=== PATIENT | male | born 1945 | race Hispanic/Latino ===

== ENCOUNTER → 2018-09-24 | Outpatient (CLI) | payer OTHER ==
[~2018-09-24] MED LIST: ASPI-1181 PO; CLOP75TA14 PO; FINA5TAB41 PO; LEVO25TA54 PO; METO-408 PO; NITR4.9S5 TL; SIMV40TA5 PO
== END | disposition home or self-care (01) ==
LOC: SHCH 14:55
PROVIDERS: ATTEND Internal Medicine Cardiovascular Disease
DX: I11.9 Hypertensive heart disease without heart failure (principal); I70.0 Atherosclerosis of aorta; I35.0 Nonrheumatic aortic (valve) stenosis; Z95.1 Presence of aortocoronary bypass graft
CPT/HCPCS: 93306

== ENCOUNTER 2019-03-19 10:41 | Emergency (ER) | payer OTHER ==
[2019-03-19 11:22] LABS: BASOPHILS % (AUTO) 0.3 % (0.0-5.0); EOSINOPHILS % (AUTO) 0.2 % (0.0-8.0); HEMATOCRIT 44.2 % (42-54); LYMPHOCYTES % (AUTO) 11.9 % (21.0-51.0); MEAN CORPUSCULAR HEMOGLOBIN 30.8 pg (27.0-33.0); MEAN CORPUSCULAR HGB CONC 34.6 g/dL (32.0-36.0); MEAN CORPUSCULAR VOLUME 89.2 fL (79-99); MONOCYTES % (AUTO) 9.7 % (3.0-13.0); NEUTROPHILS % (AUTO) 77.9 % (40.0-77.0); NUCLEATED RED BLOOD CELLS 0.1 % (0.0-0.19); PLATELET COUNT (AUTO) 174 K/uL (130-400); RED BLOOD CELL COUNT(AUTO) 4.96 MIL/uL (4.50-6.20); RED CELL DISTRIBUTION WIDTH 14.1 % (11.0-15.5); WHITE BLOOD COUNT (AUTO) 7.7 K/uL (4.8-10.8)
[2019-03-19 11:27] LABS: APPEARANCE,URINE Clear (CLEAR); BILIRUBIN,URINE Negative (NEGATIVE); COLOR,URINE Yellow (YELLOW); GLUCOSE, URINE (UA) Negative (NEGATIVE); KETONES,URINE Negative (NEGATIVE); LEUKOCYTE ESTERASE ,URINE Negative (NEGATIVE); NITRATE,URINE Negative (NEGATIVE); OCCULT BLOOD,URINE Negative (NEGATIVE); PROTEIN,URINE Negative (NEGATIVE)
[2019-03-19 11:31] LABS: CREATININE 0.9 mg/dL (0.5-1.5); POTASSIUM 3.8 mmol/L (3.5-5.1)
[2019-03-19 11:37] LABS: ALBUMIN 3.9 g/dL (3.5-5.0); BILIRUBIN,DIRECT 0.1 mg/dL (0.0-0.3); BILIRUBIN,TOTAL 0.4 mg/dL (0.2-1.0); TOTAL PROTEIN, SERUM 7.1 g/dL (6.0-8.3)
== END 2019-03-19 13:17 | disposition home or self-care (01) ==
LOC: EDH 10:41
DX: M43.06 Spondylolysis, lumbar region (principal); M54.16 Radiculopathy, lumbar region; M79.605 Pain in left leg; I10 Essential (primary) hypertension; M19.90 Unspecified osteoarthritis, unspecified site; Z98.890 Other specified postprocedural states
CPT/HCPCS: 36415; 72131; 80048; 80076; 81003; 82550; 84484; 85025; 93005; 93971; 99285; J3490

== ENCOUNTER → 2019-04-16 | Outpatient (CLI) | payer OTHER | END | disposition home or self-care (01) | LOC: RAH 08:16 | PROVIDERS: ATTEND Internal Medicine Cardiovascular Disease | DX: I06.9 Rheumatic aortic valve disease, unspecified (principal); I11.9 Hypertensive heart disease without heart failure | CPT/HCPCS: 93306 ==

== ENCOUNTER 2019-04-29 06:23 | Day surgery (SDC) | payer OTHER ==
[2019-04-26 16:19] VITALS: BP 145/80
[2019-04-26 16:19] LABS: BASOPHILS % (AUTO) 0.6 % (0.0-5.0); EOSINOPHILS % (AUTO) 2.3 % (0.0-8.0); LYMPHOCYTES % (AUTO) 18.8 % (21.0-51.0); MEAN CORPUSCULAR HEMOGLOBIN 30.4 pg (27.0-33.0); MEAN CORPUSCULAR HGB CONC 33.1 g/dL (32.0-36.0); MEAN CORPUSCULAR VOLUME 91.8 fL (79-99); MONOCYTES % (AUTO) 10.3 % (3.0-13.0); NUCLEATED RED BLOOD CELLS 0.1 % (0.0-0.19); PLATELET COUNT (AUTO) 170 K/uL (130-400); RED BLOOD CELL COUNT(AUTO) 4.69 MIL/uL (4.50-6.20); RED CELL DISTRIBUTION WIDTH 14.3 % (11.0-15.5); WHITE BLOOD COUNT (AUTO) 6.3 K/uL (4.8-10.8)
[2019-04-26 16:19] LABS: APPEARANCE,URINE Clear (CLEAR); BILIRUBIN,URINE Negative (NEGATIVE); COLOR,URINE Yellow (YELLOW); GLUCOSE, URINE (UA) Negative (NEGATIVE); KETONES,URINE Trace mg/dL (NEGATIVE); LEUKOCYTE ESTERASE ,URINE Trace (NEGATIVE); NITRATE,URINE Negative (NEGATIVE); OCCULT BLOOD,URINE Trace (NEGATIVE); PH,URINE 6.5 (5.0-8.0); PROTEIN,URINE Trace mg/dL (NEGATIVE)
[2019-04-26 16:23] LABS: BACTERIA,URINE Rare /HPF (None Seen); RBC,URINE 0-1 /HPF (0-1); SQUAMOUS EPITHELIAL CELL,UR Rare /HPF (0-2)
[2019-04-26 16:27] LABS: INR 0.96 (0.85-1.15); PROTHROMBIN TIME 10.1 SEC (9.6-11.6)
[2019-04-26 16:31] LABS: ALBUMIN 3.7 g/dL (3.5-5.0); BILIRUBIN,DIRECT 0.1 mg/dL (0.0-0.3); BILIRUBIN,TOTAL 0.3 mg/dL (0.2-1.0); CREATININE 1.1 mg/dL (0.5-1.5); POTASSIUM 4.3 mmol/L (3.5-5.1); TOTAL PROTEIN, SERUM 6.9 g/dL (6.0-8.3)
[~2019-04-29] VITALS: Ht 168.9 cm; Wt 83.0 kg
[2019-04-29] VITALS (17 sets, daily range): BP systolic 113–154; BP diastolic 57–83
[~2019-04-29 06:23] MED LIST changes: +ATOR20TA65 PO; +BACL10TA PO; +GABA-533 PO; +LISI-613 PO; +OMEGA PO; -SIMV40TA5 PO; +TRAM-355 PO; +[UNRECOGNIZED DRUG - OTHER] PO; +[UNRECOGNIZED DRUG - OTHER] PO
[2019-04-29] MEDS ORDERED: SUCCINYLCHOLINE 200MG/10ML SYR ONE (07:30)
[2019-04-29] MEDS ORDERED: LIDOCAINE PF 2% 5ML ABBOJECT ONE (07:30)
[2019-04-29] MEDS ORDERED: DEXAMETHASONE SOD PHOSPHATE 10MG/ML 1ML VIAL ONE (07:30)
[2019-04-29] MEDS ORDERED: MIDAZOLAM HCL 1 MG/ML 2ML VIAL ONE (07:31)
[2019-04-29] MEDS ORDERED: NEOSTIGMINE 5MG/5ML SYR IV ONE (07:31)
[2019-04-29] MEDS ORDERED: GLYCOPYRROLATE 1 MG/5 ML SYRINGE ONE (07:31)
[2019-04-29] MEDS ORDERED: ONDANSETRON HCL 4 MG/2 ML VIAL ONE (07:31)
[2019-04-29] MEDS ORDERED: PROPOFOL 10 MG/ML 20ML VIAL IV ONE (07:31)
[2019-04-29] MEDS ORDERED: FENTANYL CITRATE PF 50 MCG/1 ML 2ML VIAL ONE (07:31)
[2019-04-29] MEDS ORDERED: ROCURONIUM 10MG/1ML SYR 10 MG/ML ML ONE (07:31)
[2019-04-29] MEDS ORDERED: LACTATED RINGERS 1000ML 1,000 ML IV SCH (08:00)
[2019-04-29] MEDS ORDERED: HEPARIN SODIUM 1000UNIT/ML 10ML VIAL ONE (08:25)
[2019-04-29] MEDS ORDERED: PHENYLEPHRINE HCL 10 MG/ML 1ML VIAL IV ONE (08:47)
== END 2019-04-29 12:18 | disposition home or self-care (01) ==
LOC: DAH 06:23
PROVIDERS: ATTEND Surgery
DX: K80.10 Calculus of gallbladder with chronic cholecystitis without obstruction (principal); I10 Essential (primary) hypertension; E78.5 Hyperlipidemia, unspecified; I25.10 Atherosclerotic heart disease of native coronary artery without angina pectoris; E03.9 Hypothyroidism, unspecified; Z95.5 Presence of coronary angioplasty implant and graft; Z98.890 Other specified postprocedural states; Z79.82 Long term (current) use of aspirin; Z79.899 Other long term (current) drug therapy; Z95.1 Presence of aortocoronary bypass graft
CPT/HCPCS: 36415; 47562; 80048; 80076; 81001; 85025; 85610; 88304; 93005; A4450; A4600; A4930; C1769 ×4; J0330; J1100; J1644; J2001; J2250; J2370; J2405; J2704; J2710; J3010; J3490; J7030; J7120 ×2

== ENCOUNTER → 2019-05-25 | Outpatient (CLI) | payer OTHER | END | disposition home or self-care (01) | LOC: RAH 10:36 | PROVIDERS: ATTEND Internal Medicine | DX: I73.9 Peripheral vascular disease, unspecified (principal) | CPT/HCPCS: 93925 ==

== ENCOUNTER → 2019-10-01 | Outpatient (CLI) | payer OTHER | END | disposition home or self-care (01) | LOC: RAH 09:32 | PROVIDERS: ATTEND Internal Medicine | DX: K76.0 Fatty (change of) liver, not elsewhere classified (principal); I71.4 Abdominal aortic aneurysm, without rupture; R16.0 Hepatomegaly, not elsewhere classified; N28.1 Cyst of kidney, acquired | CPT/HCPCS: 76700 ==

== ENCOUNTER → 2020-03-07 | Outpatient (CLI) | payer OTHER | END | disposition home or self-care (01) | LOC: RAH 08:53 | PROVIDERS: ATTEND Internal Medicine | DX: N28.1 Cyst of kidney, acquired (principal); K76.0 Fatty (change of) liver, not elsewhere classified; I71.4 Abdominal aortic aneurysm, without rupture ==

== ENCOUNTER → 2020-04-14 | Outpatient (CLI) | payer OTHER ==
[~2020-04-14] MED LIST changes: -ASPI-1181 PO; +ASPI-1443 PO; +DULO30CA52 PO
== END | disposition home or self-care (01) ==
LOC: SHCH 07:57
PROVIDERS: ATTEND Internal Medicine Cardiovascular Disease
DX: I06.0 Rheumatic aortic stenosis (principal); I10 Essential (primary) hypertension
CPT/HCPCS: 93306; 93356

== ENCOUNTER → 2020-04-19 | Outpatient (CLI) | payer OTHER | END | disposition home or self-care (01) | LOC: SHCH 07:47 | PROVIDERS: ATTEND Internal Medicine Cardiovascular Disease | DX: I71.4 Abdominal aortic aneurysm, without rupture (principal); I25.10 Atherosclerotic heart disease of native coronary artery without angina pectoris; R09.89 Other specified symptoms and signs involving the circulatory and respiratory systems | CPT/HCPCS: 93880; 93978 ==

== ENCOUNTER 2020-04-27 17:12 | Inpatient (IN) | payer OTHER ==
[~2020-04-27] VITALS: Ht 162.6 cm; Wt 76.1 kg
[~2020-04-27 17:12] MED LIST changes: -DULO30CA52 PO
[2020-04-27] MEDS ORDERED: ASPIRIN 325MG EC TAB 325 MG TABLET.DR PO ONE ×2 (17:19→17:24)
[2020-04-27 17:58] LABS: BASOPHILS % (AUTO) 1.5 % (0.0-5.0); HEMATOCRIT 24.8 % (42-54); LYMPHOCYTES % (AUTO) 30.7 % (21.0-51.0); MEAN CORPUSCULAR HEMOGLOBIN 27.3 pg (27.0-33.0); MEAN CORPUSCULAR HGB CONC 30.2 g/dL (32.0-36.0); MEAN CORPUSCULAR VOLUME 90.2 fL (79-99); MONOCYTES % (AUTO) 29.6 % (3.0-13.0); NEUTROPHILS % (AUTO) 38.2 % (40.0-77.0); NUCLEATED RED BLOOD CELLS 16.8 % (0.0-0.19); PLATELET COUNT (AUTO) 77 K/uL (130-400); RED BLOOD CELL COUNT(AUTO) 2.75 MIL/uL (4.50-6.20); RED CELL DISTRIBUTION WIDTH 19.9 % (11.0-15.5); WHITE BLOOD COUNT (AUTO) 2.7 K/uL (4.8-10.8)
[2020-04-27] MEDS ORDERED: HEPARIN 25000 UNITS/250 ML D5W 250 ML IV ONE (17:59)
[2020-04-27] MEDS ORDERED: CLOPIDOGREL BISULFATE 300 MG TAB ONE (18:02)
[2020-04-27] MEDS ORDERED: METOPROLOL TARTRATE 1 MG/ML 5ML VIAL IV ONE (18:03)
[2020-04-27] MEDS ORDERED: NITROGLYCERIN 1GM/1 INCH PACKET TD ONE (18:03)
[2020-04-27] MEDS ORDERED: HEPARIN SODIUM 5000UNIT/ML 1ML VIAL ONE (18:03)
[2020-04-27] MEDS ORDERED: HEPARIN SODIUM 1000UNIT/ML 10ML VIAL IV ONE (18:20)
[2020-04-27] MEDS ORDERED: PHENYLEPHRINE HCL 10 MG/ML 1ML VIAL IV ONE (18:20)
[2020-04-27] MEDS ORDERED: MANNITOL 25% 50ML VIAL IV ONE (18:20)
[2020-04-27] MEDS ORDERED: CALCIUM CHLORIDE 100 MG/ML 10 ML SYG IVP ONE (18:20)
[2020-04-27] MEDS ORDERED: ALBUMIN (HUMAN) 25% 50 ML IV ONE (18:20)
[2020-04-27] MEDS ORDERED: MAGNESIUM SULFATE 1 GM/2 ML VIAL IM ONE (18:20)
[2020-04-27] MEDS ORDERED: SODIUM BICARB 8.4% 50ML SYRINGE IVP ONE (18:20)
[2020-04-27] MEDS ORDERED: AMINOCAPROIC ACID 250 MG/ML 20 ML VIAL IV ONE (18:20)
[2020-04-27 18:23] LABS: POTASSIUM 4.1 mmol/L (3.5-5.1)
[2020-04-27 18:30] LABS: BAND NEUTROPHILS % (MANUAL) 5 % (0-2); LYMPHOCYTES % (MANUAL) 38 % (22-44); SEGMENTED NEUTROPHILS % 35 % (40-70)
[2020-04-27 18:31] LABS: METAMYELOCYTES % 2 % (0-0)
[2020-04-27 18:32] LABS: B-TYPE NATRIURETIC PEPTIDE 790 pg/mL (0-100)
[2020-04-27 18:35] LABS: INR 1.02 (0.85-1.15)
[2020-04-27 18:38] LABS: ALBUMIN 3.2 g/dL (3.5-5.0); BILIRUBIN,DIRECT 0.3 mg/dL (0.0-0.3); TOTAL PROTEIN, SERUM 7.3 g/dL (6.0-8.3)
[2020-04-27 18:43] LABS: OTHER CELLS,MANUAL % 2 (0-0)
[2020-04-27 18:43] LABS: BASOPHILS % (AUTO) 1.3 % (0.0-5.0); HEMATOCRIT 24.1 % (42-54); LYMPHOCYTES % (AUTO) 28.6 % (21.0-51.0); MEAN CORPUSCULAR HEMOGLOBIN 27.1 pg (27.0-33.0); MEAN CORPUSCULAR HGB CONC 30.3 g/dL (32.0-36.0); MEAN CORPUSCULAR VOLUME 89.6 fL (79-99); MONOCYTES % (AUTO) 27.7 % (3.0-13.0); NEUTROPHILS % (AUTO) 31.7 % (40.0-77.0); PLATELET COUNT (AUTO) 80 K/uL (130-400); RED BLOOD CELL COUNT(AUTO) 2.69 MIL/uL (4.50-6.20); RED CELL DISTRIBUTION WIDTH 19.9 % (11.0-15.5); WHITE BLOOD COUNT (AUTO) 2.2 K/uL (4.8-10.8)
[2020-04-27 18:44] LABS: REACTIVE LYMPHOCYTES 2 % (0-0)
[2020-04-27 21:00] VITALS: BP 114/73
[2020-04-27 22:00] VITALS: BP 110/52
[2020-04-27 22:23] VITALS: BP 98/63
[2020-04-27 23:00] VITALS: BP 95/61
[2020-04-27 23:23] VITALS: BP 108/72
[2020-04-27 23:25] LABS: HEMATOCRIT 22.8 % (42-54)
[2020-04-28] VITALS (27 sets, daily range): BP systolic 87–117; BP diastolic 48–81
[2020-04-28 00:17] LABS: TROPONIN I 3.53 ng/mL (0.00-0.06)
[2020-04-28] MEDS ORDERED: DULO30CA52 PO (00:56)
[2020-04-28 03:46] LABS: HEMATOCRIT 22.6 % (42-54); MEAN CORPUSCULAR HEMOGLOBIN 27.5 pg (27.0-33.0); MEAN CORPUSCULAR HGB CONC 31.4 g/dL (32.0-36.0); MEAN CORPUSCULAR VOLUME 87.6 fL (79-99); PLATELET COUNT (AUTO) 77 K/uL (130-400); RED BLOOD CELL COUNT(AUTO) 2.58 MIL/uL (4.50-6.20); RED CELL DISTRIBUTION WIDTH 19.8 % (11.0-15.5); WHITE BLOOD COUNT (AUTO) 2.6 K/uL (4.8-10.8)
[2020-04-28 04:16] LABS: BAND NEUTROPHILS % (MANUAL) 4 % (0-2); LYMPHOCYTES % (MANUAL) 44 % (22-44); MONOCYTES % (MANUAL) 11 % (2-9); SEGMENTED NEUTROPHILS % 41 % (40-70)
[2020-04-28 04:18] LABS: MAN.DIFF COMMENT-IMPRESSION MANUAL DIFFERENTIAL
[2020-04-28 04:21] LABS: PLATELET MORPHOLOGY COMMENT MARKED DECREASE
[2020-04-28 05:15] LABS: INR 1.08 (0.85-1.15); PARTIAL THROMBOPLASTIN TIME 53.5 SEC (26.3-35.5); PROTHROMBIN TIME 11.6 SEC (9.6-11.6)
[2020-04-28] MEDS ORDERED: ONDANSETRON HCL 4 MG/2 ML VIAL IVP PRN (07:00)
--- NOTE | 2020-04-28 07:00 | NUR ---
ACCEPTED CARE ACCEPTED CARE REPORT RECEIVED USING SBAR FORMAT.
[2020-04-28 07:50] LABS: ALBUMIN 3.1 g/dL (3.5-5.0); BILIRUBIN,TOTAL 1.2 mg/dL (0.2-1.0); CREATININE 1.1 mg/dL (0.5-1.5); CRP QUANTITATIVE 117.7 mg/L (0.00-9.0); MAGNESIUM 1.9 mg/dL (1.80-2.40); PHOSPHORUS 4.3 mg/dL (2.5-4.9); POTASSIUM 4.2 mmol/L (3.5-5.1)
[2020-04-28] MEDS: FUROSEMIDE 10 MG/ML 4ML VIAL IV SCH ×2 (08:36→18:00)
[2020-04-28] MEDS: PANTOPRAZOLE SODIUM 40 MG TABLET.DR PO SCH (08:36)
[2020-04-28] MEDS: METOPROLOL SUCCINATE 50 MG TAB.SR.24H PO SCH (08:36)
[2020-04-28] MEDS: LEVOTHYROXINE 25 MCG TABLET PO SCH (08:36)
[2020-04-28] MEDS: ASPIRIN 81 MG EC TAB PO SCH (08:37)
[2020-04-28] MEDS: DEXAMETHASONE SOD PHOSPHATE 4 MG/ML 1ML VIAL IVP SCH (08:37)
[2020-04-28] MEDS: DULOXETINE HCL 30 MG CAP PO SCH (08:37)
[2020-04-28] MEDS ORDERED: LISINOPRIL 20 MG TABLET PO SCH (09:00)
[2020-04-28] MEDS: HEPARIN 25000 UNITS/250 ML D5W 250 ML IV PRN (09:21)
[2020-04-28 09:59] LABS: INR 1.07 (0.85-1.15); PARTIAL THROMBOPLASTIN TIME 47.3 SEC (26.3-35.5); PROTHROMBIN TIME 11.5 SEC (9.6-11.6)
[2020-04-28] MEDS ORDERED: PROPOFOL 1000 MG/100 ML 100 ML IV ONE (10:28)
--- NOTE | 2020-04-28 10:37 | NUR ---
CHART CHECK COMPLETED. Pt IS A 74 Y.O. MALE ADMITTED SECONDARY TO NON STEMI. Pt HAS A PAST MEDICAL HISTORY SIGNIFICANT FOR CAD, CABG, AORTIC STENOSIS, HTN, HLD, PVD, CHRONIC LOWER BACK PAIN, CHOLECYSTECTOMY. Pt CURRENTLY ON REGULAR TEXTURE,THIN LIQUID DIET (HEART HEALTHY). PLEASE REQUEST FORMAL SKILLED SPEECH/SWALLOW EVALUATION IF Pt PRESENTS WITH +S/S OF ASPIRATION SUCH COUGH RESPONSE, THROAT CLEAR, OR WET VOCAL QUALITY DURING P.O. Addendum: 04/28/20 at 1038 by ARIELLE NAGY [facility] Amended: Links added.
--- NOTE | 2020-04-28 10:53 | NUR ---
DC PLAN CALLED DAUGHTER MCKENNA BROWN PERSON TO NOTIFY ON FACE SHEET. PATIENT LIVES ALONE. BUT FAMILY TAKES CARE OF HIM. PATIENT HAS A CANE, NO SERVICES. PLAN IS TO RETURN HOME. WILL LIKELY STAY WITH A FAMILY MEMBER. ANSWERED DAUGHTERS QUESTIONS/CONCERNS. Addendum: 04/28/20 at 1057 by UBALDO MEYER RN CM Amended: Links added.
[2020-04-28] MEDS: FINASTERIDE 5 MG TABLET PO SCH (12:49)
--- NOTE | 2020-04-28 13:15 | NUR ---
TRANSFER OF CARE REPORT GIVEN USING SBAR FORMAT. PATIENT TRANSFERRED TO ROOM 204 VIA WHEELCHAIR BY CHARGE NURSE. TOLERATED WITHOUT INCIDENCE
[2020-04-28] MEDS ORDERED: IOHEXOL 350 MG/ML 100ML INFUS..BTL IV ONE (16:37)
[2020-04-28] MEDS: ATORVASTATIN CALCIUM 20 MG TABLET PO SCH (20:07)
--- NOTE | 2020-04-28 22:26 | NUR ---
COVID PCR PT REFUSED COVID PCR SWAB, PT WAS EXPLAINED TO IN WOLOF THE NEED FOR SECOND SWAB AND STILL DECLINED.
[2020-04-29] MEDS: HEPARIN 25000 UNITS/250 ML D5W 250 ML IV PRN ×3 (01:55→21:50)
[2020-04-29 03:37] LABS: ABG BASE EXCESS -0.8 mmol/L (-2.0-3.0); ABG HCO3 22.4 mmol/L (21.0-28.0); ABG OXYGEN SATURATION 98.6 % (95.0-99.0); ABG PCO2 34 mmHg (35-48)
[2020-04-29 04:24] LABS: HEMATOCRIT 22.7 % (42-54); MEAN CORPUSCULAR HEMOGLOBIN 27.7 pg (27.0-33.0); MEAN CORPUSCULAR HGB CONC 31.3 g/dL (32.0-36.0); MEAN CORPUSCULAR VOLUME 88.7 fL (79-99); NUCLEATED RED BLOOD CELLS 18.6 % (0.0-0.19); PLATELET COUNT (AUTO) 72 K/uL (130-400); RED BLOOD CELL COUNT(AUTO) 2.56 MIL/uL (4.50-6.20); RED CELL DISTRIBUTION WIDTH 19.8 % (11.0-15.5); WHITE BLOOD COUNT (AUTO) 2.6 K/uL (4.8-10.8)
[2020-04-29 04:42] LABS: B-TYPE NATRIURETIC PEPTIDE 788 pg/mL (0-100)
[2020-04-29 05:35] VITALS: BP 95/70
[2020-04-29] MEDS: FUROSEMIDE 10 MG/ML 4ML VIAL IV SCH (05:53)
[2020-04-29 08:00] VITALS: BP 80/63
[2020-04-29] MEDS: METOPROLOL SUCCINATE 50 MG TAB.SR.24H PO SCH ×2 (08:00→08:56)
[2020-04-29] MEDS: ASPIRIN 81 MG EC TAB PO SCH (08:01)
[2020-04-29] MEDS: LEVOTHYROXINE 25 MCG TABLET PO SCH (08:01)
[2020-04-29] MEDS: PANTOPRAZOLE SODIUM 40 MG TABLET.DR PO SCH (08:01)
[2020-04-29] MEDS: DEXAMETHASONE SOD PHOSPHATE 4 MG/ML 1ML VIAL IVP SCH (08:01)
[2020-04-29] MEDS: DULOXETINE HCL 30 MG CAP PO SCH (08:01)
[2020-04-29 11:30] VITALS: BP 107/76
[2020-04-29] MEDS: FINASTERIDE 5 MG TABLET PO SCH (12:05)
[2020-04-29 15:30] VITALS: BP 106/69
[2020-04-29] MEDS: FUROSEMIDE 10 MG/ML 2ML VIAL IV SCH (18:15)
--- NOTE | 2020-04-29 19:23 | NUR ---
PTT NOTED NO RECENT PTT FOR PATIENT, LAB ORDER PLACED FOR NOW. Addendum: 04/29/20 at 2210 by VITALIY PONCE RN RN PTT RESULTED 44.2 ADJUSTED PER PROTOCOL NEXT PTT DUE @ 0400.
[2020-04-29 20:08] VITALS: BP 97/64
[2020-04-29] MEDS: ATORVASTATIN CALCIUM 20 MG TABLET PO SCH (20:21)
[2020-04-29 23:25] VITALS: BP 97/70
[2020-04-30] VITALS (15 sets, daily range): BP systolic 86–116; BP diastolic 53–78
[2020-04-30] MEDS: FUROSEMIDE 10 MG/ML 2ML VIAL IV SCH ×2 (05:28→18:03)
[2020-04-30] MEDS: LEVOTHYROXINE 25 MCG TABLET PO SCH (05:58)
[2020-04-30 06:04] LABS: BASOPHILS % (AUTO) 1.3 % (0.0-5.0); HEMATOCRIT 22.8 % (42-54); LYMPHOCYTES % (AUTO) 25.6 % (21.0-51.0); MEAN CORPUSCULAR HEMOGLOBIN 27.3 pg (27.0-33.0); MEAN CORPUSCULAR HGB CONC 30.7 g/dL (32.0-36.0); MEAN CORPUSCULAR VOLUME 89.1 fL (79-99); MONOCYTES % (AUTO) 27.3 % (3.0-13.0); NUCLEATED RED BLOOD CELLS 21.5 % (0.0-0.19); PLATELET COUNT (AUTO) 68 K/uL (130-400); RED BLOOD CELL COUNT(AUTO) 2.56 MIL/uL (4.50-6.20); RED CELL DISTRIBUTION WIDTH 19.7 % (11.0-15.5)
[2020-04-30 06:38] LABS: ALBUMIN 2.9 g/dL (3.5-5.0); BILIRUBIN,TOTAL 0.8 mg/dL (0.2-1.0); PHOSPHORUS 5.1 mg/dL (2.5-4.9); POTASSIUM 3.8 mmol/L (3.5-5.1); TOTAL PROTEIN, SERUM 6.8 g/dL (6.0-8.3)
[2020-04-30] MEDS: DULOXETINE HCL 30 MG CAP PO SCH (08:00)
[2020-04-30] MEDS: ASPIRIN 81 MG EC TAB PO SCH (08:00)
[2020-04-30] MEDS: PANTOPRAZOLE SODIUM 40 MG TABLET.DR PO SCH (08:00)
[2020-04-30] MEDS: DEXAMETHASONE SOD PHOSPHATE 4 MG/ML 1ML VIAL IVP SCH (08:01)
[2020-04-30] MEDS: METOPROLOL SUCCINATE 50 MG TAB.SR.24H PO SCH (09:00)
[2020-04-30] MEDS: HEPARIN 25000 UNITS/250 ML D5W 250 ML IV PRN (10:30)
[2020-04-30] MEDS: FINASTERIDE 5 MG TABLET PO SCH (11:22)
--- NOTE | 2020-04-30 13:30 | NUR ---
MD NOTIFICATION CALL RECEIVED FORM Renita GARDUNO. UPDATED ON PT'S STATUS. PLAN OF CARE REVIEWED. NO NEW ORDERS RECEIVED @ THIS TIME.
--- NOTE | 2020-04-30 15:40 | NUR ---
STATUS/BLOOD TRANSFUSION PT LAYING IN BED, GETTING READY TO BEGIN BLOOD TRANSFUSION. PT C/O CHEST PAIN RADIATING TO RT ARM & JAW, 03/31, & INTERMITTENT. PT STATES HAVING CHEST PAIN SINCE EARLIER TODAY BUT HADN'T NOTIFIED STAFF SINCE PAIN WOULD SUBSIDE. Renita GARDUNO NOTIFIED OF PT'S STATUS. STAT EKG ORDERED & DR ALEGRE TO BE NOTIFIED. BLOOD TRANSFUSION STARTED. NO ADVERSE REACTION TO BLOOD TRANSFUSION. V/S PER V/S SPREADSHEET. DR ALEGRE NOTIFIED OF EKG & PT'S CURRENT STATUS. DR ALEGRE TO COME SEE PT.
--- NOTE | 2020-04-30 17:08 | NUR ---
MD VISIT DR ALEGRE IN TO SEE PT. PT'S EKGS & V/S REVIEWED BY MD. ORDER FOR METOPROLOL 9MG RECEIVED & ENTERED. TO REEVALUATE PT.
[2020-04-30] MEDS ORDERED: METOPROLOL TARTRATE 1 MG/ML 5ML VIAL IV ONE ×2 (17:14→17:16)
[2020-04-30] MEDS ORDERED: METOPROLOL TARTRATE 1 MG/ML 5ML VIAL IV SCH ×3 (17:15→18:15)
[2020-04-30] MEDS: ATORVASTATIN CALCIUM 20 MG TABLET PO SCH (20:22)
[2020-05-01] MEDS: HEPARIN 25000 UNITS/250 ML D5W 250 ML IV PRN (03:33)
[2020-05-01 04:03] VITALS: BP 92/67
[2020-05-01 06:06] VITALS: BP 98/62
[2020-05-01] MEDS: LEVOTHYROXINE 25 MCG TABLET PO SCH (06:06)
[2020-05-01] MEDS: FUROSEMIDE 10 MG/ML 2ML VIAL IV SCH ×2 (06:06→20:17)
--- NOTE | 2020-05-01 06:54 | NUR ---
SHIFT SUMMARY PT RECEIVED A&OX3 IN BED WITH HEPARIN DRIP INFUSING 17UNITS/KG/HR CURRENT PTT IS THERAPEUTIC NEXT DUE QAM. DENIES CHEST PAIN SOB THROUGHOUT SHIFT. NO CHANGES FROM BASELINE DOCUMENTED SHIFT ASSESSMENT.
[2020-05-01 07:52] LABS: CREATININE 0.9 mg/dL (0.5-1.5); POTASSIUM 4.2 mmol/L (3.5-5.1)
[2020-05-01 08:27] LABS: HEMATOCRIT 26.4 % (42-54); MEAN CORPUSCULAR HGB CONC 31.4 g/dL (32.0-36.0); MEAN CORPUSCULAR VOLUME 89.2 fL (79-99); NUCLEATED RED BLOOD CELLS 28.7 % (0.0-0.19); PLATELET COUNT (AUTO) 63 K/uL (130-400); RED BLOOD CELL COUNT(AUTO) 2.96 MIL/uL (4.50-6.20); RED CELL DISTRIBUTION WIDTH 19.2 % (11.0-15.5); WHITE BLOOD COUNT (AUTO) 3.4 K/uL (4.8-10.8)
[2020-05-01 09:07] VITALS: BP 155/98
[2020-05-01 09:23] LABS: BAND NEUTROPHILS % (MANUAL) 1 % (0-2); LYMPHOCYTES % (MANUAL) 44 % (22-44); MAN.DIFF COMMENT-IMPRESSION MANUAL DIFFERENTIAL; MONOCYTES % (MANUAL) 19 % (2-9); PLATELET MORPHOLOGY COMMENT DECREASED; SEGMENTED NEUTROPHILS % 36 % (40-70)
[2020-05-01] MEDS: METOPROLOL SUCCINATE 50 MG TAB.SR.24H PO SCH (09:27)
[2020-05-01] MEDS: PANTOPRAZOLE SODIUM 40 MG TABLET.DR PO SCH (09:27)
[2020-05-01] MEDS: DEXAMETHASONE SOD PHOSPHATE 4 MG/ML 1ML VIAL IVP SCH (09:27)
[2020-05-01] MEDS: ASPIRIN 81 MG EC TAB PO SCH (09:27)
[2020-05-01] MEDS: DULOXETINE HCL 30 MG CAP PO SCH (09:27)
--- NOTE | 2020-05-01 11:00 | NUR ---
RE: BONE MARROW BIOPSY FOR THROMBOCYTOPENIA PATIENT HAD BREAKFAST AND ON HEPARIN DRIP. PATENT ALSO SCHEDULED FOR HEART CATHETERIZATION TOMORROW. DR Anuj SINGH NOTIFIED OF PATIENT'S STATUS. PROCEDURE RESCHEDULED FOR Friday05/03/[address]IZATION AND PL[address] PATIENT NPO AFTER MIDNIGHT ON 05/03/20. NIKKY ROMERO CHARGE NURSE NOTIFIED OF PROCEDURE OUTCOME.
[2020-05-01 12:31] VITALS: BP 145/95
[2020-05-01] MEDS ORDERED: SODIUM CHLORIDE 0.9% 250 ML IV ONE (12:45)
[2020-05-01] MEDS: FINASTERIDE 5 MG TABLET PO SCH (12:49)
--- NOTE | 2020-05-01 13:37 | NUR ---
LIBRADO PLAN VISITED WITH PATIENT. GOT BRUNO FOR OXYGEN IN CASE NEEDED. PATIENT CURRENTLY 2L. STILL PENDING CATH AND BONE MARROW BIOPSY. Addendum: 05/01/20 at 1339 by UBALDO MEYER RN CM Amended: Links added.
[2020-05-01 15:40] VITALS: BP 156/96
[2020-05-01] MEDS ORDERED: FUROSEMIDE 10 MG/ML 2ML VIAL IV SCH (16:30)
[2020-05-01 20:17] VITALS: BP 98/70
[2020-05-01] MEDS: ATORVASTATIN CALCIUM 20 MG TABLET PO SCH (20:17)
--- NOTE | 2020-05-01 22:00 | NUR ---
PT RECEIVED A&OX3 IN BEDSIDE CHAIR WITH HEPARIN DRIP INFUSING AT 17UNITS/KG/HR TO LEFT AC, PTT THERAPEUTIC NEXT DUE TOMORROW 0400. PT TO TRANSFER TO NON COVID UNIT, ATTEMPTED TO CALL REPORT AT THIS TIME NURSE UNAVAILABLE.
--- NOTE | 2020-05-01 22:38 | NUR ---
TRANSFER REPORT CALLED TO NIKKY VARGHESE PT TRANSFERRED DAY PT 15 WITH ALL BELONGINGS, HEPARIN DRIP VERIFIED AT BEDSIDE WITH JAM VARGHESE.
[2020-05-02 00:23] VITALS: BP 97/66
[2020-05-02] MEDS: LEVOTHYROXINE 25 MCG TABLET PO SCH (05:33)
[2020-05-02 05:49] VITALS: BP 94/64
[2020-05-02 08:00] VITALS: BP 104/65
[2020-05-02] MEDS: METOPROLOL SUCCINATE 50 MG TAB.SR.24H PO SCH (08:04)
[2020-05-02] MEDS: DULOXETINE HCL 30 MG CAP PO SCH (08:04)
[2020-05-02] MEDS: FUROSEMIDE 10 MG/ML 2ML VIAL IV SCH ×2 (08:04→20:01)
[2020-05-02] MEDS: ASPIRIN 81 MG EC TAB PO SCH (08:04)
[2020-05-02] MEDS: PANTOPRAZOLE SODIUM 40 MG TABLET.DR PO SCH (08:04)
--- NOTE | 2020-05-02 11:16 | NUR ---
spoke to sigrid, rn in radiology about planning for bone marrow biopsy tomorrow. updated on pt condition and medications. sigrid will relay information to radiologist doing procedure and will call back with orders.
[2020-05-02 12:00] VITALS: BP 104/71
--- NOTE | 2020-05-02 12:19 | NUR ---
as per micaela hodges ok to stop heparin drip.
[2020-05-02] MEDS: FINASTERIDE 5 MG TABLET PO SCH (12:22)
[2020-05-02 19:53] VITALS: BP 110/73
[2020-05-02] MEDS: ATORVASTATIN CALCIUM 20 MG TABLET PO SCH (20:01)
[2020-05-02 23:34] LABS: APPEARANCE,URINE Clear (CLEAR); BILIRUBIN,URINE Negative (NEGATIVE); COLOR,URINE Yellow (YELLOW); GLUCOSE, URINE (UA) Negative (NEGATIVE); KETONES,URINE Negative (NEGATIVE); LEUKOCYTE ESTERASE ,URINE Negative (NEGATIVE); NITRATE,URINE Negative (NEGATIVE); OCCULT BLOOD,URINE Negative (NEGATIVE); PROTEIN,URINE Negative (NEGATIVE)
[2020-05-03] VITALS (13 sets, daily range): BP systolic 91–106; BP diastolic 54–73
[2020-05-03 04:35] LABS: BASOPHILS % (AUTO) 1.8 % (0.0-5.0); HEMATOCRIT 28.4 % (42-54); LYMPHOCYTES % (AUTO) 21.3 % (21.0-51.0); MEAN CORPUSCULAR HEMOGLOBIN 28.1 pg (27.0-33.0); MEAN CORPUSCULAR HGB CONC 32.4 g/dL (32.0-36.0); MEAN CORPUSCULAR VOLUME 86.9 fL (79-99); MONOCYTES % (AUTO) 27.9 % (3.0-13.0); NEUTROPHILS % (AUTO) 32.8 % (40.0-77.0); PLATELET COUNT (AUTO) 59 K/uL (130-400); RED BLOOD CELL COUNT(AUTO) 3.27 MIL/uL (4.50-6.20); RED CELL DISTRIBUTION WIDTH 18.1 % (11.0-15.5); WHITE BLOOD COUNT (AUTO) 4.4 K/uL (4.8-10.8)
[2020-05-03 05:08] LABS: CREATININE 0.9 mg/dL (0.5-1.5); POTASSIUM 3.5 mmol/L (3.5-5.1)
[2020-05-03 05:13] LABS: PARTIAL THROMBOPLASTIN TIME 28.5 SEC (26.3-35.5); PROTHROMBIN TIME 10.8 SEC (9.6-11.6)
[2020-05-03] MEDS: LEVOTHYROXINE 25 MCG TABLET PO SCH (05:16)
[2020-05-03 05:19] LABS: BAND NEUTROPHILS % (MANUAL) 17 % (0-2); EOSINOPHILS % (MANUAL) 1 % (1-6); LYMPHOCYTES % (MANUAL) 31 % (22-44); METAMYELOCYTES % 2 % (0-0); MONOCYTES % (MANUAL) 19 % (2-9); MYELOCYTES % 1 % (0-0); REACTIVE LYMPHOCYTES 2 % (0-0); SEGMENTED NEUTROPHILS % 27 % (40-70)
[2020-05-03 05:20] LABS: MAN.DIFF COMMENT-IMPRESSION MANUAL DIFFERENTIAL
[2020-05-03] MEDS ORDERED: POTASSIUM CHLORIDE 20MEQ/100ML 100 ML IV PRN (07:45)
[2020-05-03] MEDS ORDERED: LIDOCAINE HCL-MPF 1% 2ML VIAL IV PRN (07:45)
[2020-05-03] MEDS ORDERED: POTASSIUM CHLORIDE 10% ELIXIR 20 MEQ/15 ML UDCUP PO PRN (07:45)
[2020-05-03] MEDS: DULOXETINE HCL 30 MG CAP PO SCH (08:35)
[2020-05-03] MEDS: PANTOPRAZOLE SODIUM 40 MG TABLET.DR PO SCH (08:35)
[2020-05-03] MEDS: ASPIRIN 81 MG EC TAB PO SCH (08:35)
[2020-05-03] MEDS: METOPROLOL SUCCINATE 50 MG TAB.SR.24H PO SCH (08:35)
[2020-05-03] MEDS: POTASSIUM CHLORIDE 20 MEQ ERTAB PO PRN ×2 (08:36→20:54)
[2020-05-03] MEDS: FUROSEMIDE 10 MG/ML 2ML VIAL IV SCH ×2 (08:37→20:51)
--- NOTE | 2020-05-03 09:54 | NUR ---
COVID-19 ASSESSMENT COVID-[address] Anuj SINGH NOTIFIED Addendum: 05/03/20 at 0957 by CHONG CONTRERAS RN RN Amended: Links added.
[2020-05-03] MEDS ORDERED: FENTANYL CITRATE PF 50 MCG/1 ML 2ML VIAL ONE (11:20)
--- NOTE | 2020-05-03 12:00 | NUR ---
CT GD RT TORRES BONE BX/ASP PROCEDURE PERFORMED BY DR Anuj SINGH. PUNCTURE SITE RT UPPER BUTTOCK AND PATIENT TOLERATED PROCEDURE WELL. SPECIMEN X 6 COLLECTED AND SENT TO LAB. END OF PROCEDURE AT 1140. BIOPSY NEEDLE REMOVED AND DRESSING APPLIED. NO BLEEDING NOTED. REPORT GIVEN TO Anuj SCHAEFER RN AND PATIENT TRANSPORTED TO [facility] [place] VIA BED AT 1200. AAO X3 WITH NO C/O PAIN.
[2020-05-03] MEDS: FINASTERIDE 5 MG TABLET PO SCH (12:19)
[2020-05-03] MEDS: ATORVASTATIN CALCIUM 20 MG TABLET PO SCH (20:52)
[2020-05-04] VITALS (13 sets, daily range): BP systolic 96–121; BP diastolic 54–74
[2020-05-04 03:45] LABS: BASOPHILS % (AUTO) 2.3 % (0.0-5.0); HEMATOCRIT 29.7 % (42-54); LYMPHOCYTES % (AUTO) 18.9 % (21.0-51.0); MEAN CORPUSCULAR HEMOGLOBIN 27.7 pg (27.0-33.0); MEAN CORPUSCULAR HGB CONC 31.6 g/dL (32.0-36.0); MEAN CORPUSCULAR VOLUME 87.6 fL (79-99); MONOCYTES % (AUTO) 24.4 % (3.0-13.0); NEUTROPHILS % (AUTO) 32.8 % (40.0-77.0); NUCLEATED RED BLOOD CELLS 8.5 % (0.0-0.19); PLATELET COUNT (AUTO) 57 K/uL (130-400); RED BLOOD CELL COUNT(AUTO) 3.39 MIL/uL (4.50-6.20); RED CELL DISTRIBUTION WIDTH 17.6 % (11.0-15.5); WHITE BLOOD COUNT (AUTO) 4.4 K/uL (4.8-10.8)
[2020-05-04 03:53] LABS: POTASSIUM 3.8 mmol/L (3.5-5.1)
[2020-05-04] MEDS: LEVOTHYROXINE 25 MCG TABLET PO SCH (06:20)
--- NOTE | 2020-05-04 10:23 | NUR ---
RDSCREEN - LOS X 7 Pt admitted Non Stemi. Heart Healthy diet order held pending R&L-Heart catheterization. Tolerating diet order prior to NPO, Good PO intake at 100%. Appropriate BMI for age. Alb 2.9. Recommend resume Heart Healthy diet order when medically feasible Recommend Ensure QD once diet resumed RD to continue to monitor. Please notify as additional nutrition concerns arise. Thank you. Addendum: 05/04/20 at [address] Amended: Links added.
[2020-05-04] MEDS: METOPROLOL SUCCINATE 50 MG TAB.SR.24H PO SCH (10:37)
[2020-05-04] MEDS: ASPIRIN 81 MG EC TAB PO SCH (10:37)
[2020-05-04] MEDS: PANTOPRAZOLE SODIUM 40 MG TABLET.DR PO SCH (10:37)
[2020-05-04] MEDS: FUROSEMIDE 10 MG/ML 2ML VIAL IV SCH ×2 (10:38→23:29)
[2020-05-04] MEDS ORDERED: ADENOSINE 90MG/30ML VIAL IV ONE ×2 (12:34→12:40)
[2020-05-04] MEDS ORDERED: NITROGLYCERIN 2 MG/VIAL VIAL IV ONE (14:20)
[2020-05-04] MEDS ORDERED: LIDOCAINE HCL 2% 20ML ONE (14:20)
[2020-05-04] MEDS ORDERED: IOHEXOL 350 MG/ML 100ML INFUS..BTL IV ONE (14:20)
[2020-05-04] MEDS ORDERED: HEPARIN SODIUM 1000UNIT/ML 10ML VIAL ONE (14:20)
[2020-05-04] MEDS ORDERED: FENTANYL CITRATE PF 50 MCG/1 ML 2ML VIAL ONE (16:07)
[2020-05-04] MEDS: FINASTERIDE 5 MG TABLET PO SCH (17:58)
[2020-05-04] MEDS: DULOXETINE HCL 30 MG CAP PO SCH (17:58)
[2020-05-04] MEDS: ATORVASTATIN CALCIUM 20 MG TABLET PO SCH (20:28)
[2020-05-05 04:00] VITALS: BP 95/56
[2020-05-05 04:03] LABS: BASOPHILS % (AUTO) 2.5 % (0.0-5.0); HEMATOCRIT 32.4 % (42-54); MEAN CORPUSCULAR HEMOGLOBIN 27.9 pg (27.0-33.0); MEAN CORPUSCULAR HGB CONC 31.5 g/dL (32.0-36.0); MEAN CORPUSCULAR VOLUME 88.5 fL (79-99); MONOCYTES % (AUTO) 25.4 % (3.0-13.0); NEUTROPHILS % (AUTO) 36.1 % (40.0-77.0); PLATELET COUNT (AUTO) 57 K/uL (130-400); RED BLOOD CELL COUNT(AUTO) 3.66 MIL/uL (4.50-6.20)
[2020-05-05] MEDS: LEVOTHYROXINE 25 MCG TABLET PO SCH (05:34)
[2020-05-05 06:12] LABS: ALBUMIN 2.9 g/dL (3.5-5.0); BILIRUBIN,TOTAL 1.1 mg/dL (0.2-1.0); CREATININE 0.8 mg/dL (0.5-1.5); MAGNESIUM 2.1 mg/dL (1.80-2.40); PHOSPHORUS 4.2 mg/dL (2.5-4.9); POTASSIUM 4.2 mmol/L (3.5-5.1); TOTAL PROTEIN, SERUM 6.9 g/dL (6.0-8.3)
[2020-05-05 07:47] VITALS: BP 114/62
[2020-05-05] MEDS: METOPROLOL SUCCINATE 50 MG TAB.SR.24H PO SCH (09:00)
[2020-05-05] MEDS: ASPIRIN 81 MG EC TAB PO SCH (09:26)
[2020-05-05] MEDS: PANTOPRAZOLE SODIUM 40 MG TABLET.DR PO SCH (09:26)
[2020-05-05] MEDS: DULOXETINE HCL 30 MG CAP PO SCH (09:26)
[2020-05-05] MEDS: FUROSEMIDE 10 MG/ML 2ML VIAL IV SCH ×2 (09:26→20:40)
[2020-05-05 10:56] VITALS: BP 99/54
[2020-05-05] MEDS: FINASTERIDE 5 MG TABLET PO SCH (12:00)
[2020-05-05 16:10] VITALS: BP 100/60
[2020-05-05 19:35] VITALS: BP 98/61
[2020-05-05] MEDS: ATORVASTATIN CALCIUM 20 MG TABLET PO SCH (20:40)
[2020-05-05] MEDS: ACETAMINOPHEN 325 MG TAB PO PRN (20:46)
[2020-05-05 23:35] VITALS: BP 103/64
[2020-05-06 03:59] VITALS: BP 123/63
[2020-05-06 04:13] LABS: HEMATOCRIT 26.4 % (42-54); MEAN CORPUSCULAR HEMOGLOBIN 28.2 pg (27.0-33.0); MEAN CORPUSCULAR HGB CONC 32.2 g/dL (32.0-36.0); MEAN CORPUSCULAR VOLUME 87.7 fL (79-99); NUCLEATED RED BLOOD CELLS 4.2 % (0.0-0.19); PLATELET COUNT (AUTO) 46 K/uL (130-400); RED BLOOD CELL COUNT(AUTO) 3.01 MIL/uL (4.50-6.20); RED CELL DISTRIBUTION WIDTH 17.6 % (11.0-15.5); WHITE BLOOD COUNT (AUTO) 2.4 K/uL (4.8-10.8)
[2020-05-06 04:21] LABS: CREATININE 0.9 mg/dL (0.5-1.5); POTASSIUM 3.8 mmol/L (3.5-5.1)
[2020-05-06 05:01] LABS: BAND NEUTROPHILS % (MANUAL) 10 % (0-2); EOSINOPHILS % (MANUAL) 1 % (1-6); LYMPHOCYTES % (MANUAL) 42 % (22-44); MONOCYTES % (MANUAL) 21 % (2-9); REACTIVE LYMPHOCYTES 3 % (0-0); SEGMENTED NEUTROPHILS % 23 % (40-70)
[2020-05-06 05:04] LABS: MAN.DIFF COMMENT-IMPRESSION MANUAL DIF; PLATELET MORPHOLOGY COMMENT MARKED DECREASE
[2020-05-06] MEDS: LEVOTHYROXINE 25 MCG TABLET PO SCH (06:35)
[2020-05-06 07:47] VITALS: BP 106/66
[2020-05-06] MEDS: METOPROLOL SUCCINATE 50 MG TAB.SR.24H PO SCH (09:52)
[2020-05-06] MEDS: DULOXETINE HCL 30 MG CAP PO SCH (09:52)
[2020-05-06] MEDS: PANTOPRAZOLE SODIUM 40 MG TABLET.DR PO SCH (09:52)
[2020-05-06] MEDS: ASPIRIN 81 MG EC TAB PO SCH (09:52)
[2020-05-06] MEDS: FUROSEMIDE 10 MG/ML 2ML VIAL IV SCH ×2 (09:53→21:36)
[2020-05-06 10:46] VITALS: BP 98/59
[2020-05-06] MEDS: FINASTERIDE 5 MG TABLET PO SCH (12:00)
[2020-05-06 15:52] VITALS: BP 86/63
[2020-05-06 19:55] VITALS: BP 96/59
[2020-05-06] MEDS: ATORVASTATIN CALCIUM 20 MG TABLET PO SCH (21:36)
[2020-05-06 23:23] VITALS: BP 106/62
[2020-05-07 03:30] VITALS: BP 98/66
[2020-05-07] MEDS: LEVOTHYROXINE 25 MCG TABLET PO SCH (07:00)
[2020-05-07 08:00] VITALS: BP 105/70
[2020-05-07] MEDS: PANTOPRAZOLE SODIUM 40 MG TABLET.DR PO SCH (08:37)
[2020-05-07] MEDS: ASPIRIN 81 MG EC TAB PO SCH (08:37)
[2020-05-07] MEDS: DULOXETINE HCL 30 MG CAP PO SCH (08:37)
[2020-05-07] MEDS: FUROSEMIDE 10 MG/ML 2ML VIAL IV SCH (08:38)
[2020-05-07] MEDS: METOPROLOL SUCCINATE 50 MG TAB.SR.24H PO SCH (08:38)
[2020-05-07 11:00] VITALS: BP 98/60
[2020-05-07] MEDS: FINASTERIDE 5 MG TABLET PO SCH (12:01)
[2020-05-07 16:00] VITALS: BP 109/73
[2020-05-07] MEDS ORDERED: FUROSEMIDE 10 MG/ML 2ML VIAL IV SCH (18:00)
[2020-05-07 19:27] VITALS: BP 104/61
[2020-05-07] MEDS: ATORVASTATIN CALCIUM 20 MG TABLET PO SCH (20:50)
[2020-05-07 23:39] VITALS: BP 97/58
[2020-05-08 03:06] VITALS: BP 101/60
[2020-05-08 04:18] LABS: HEMATOCRIT 26.1 % (42-54); LYMPHOCYTES % (AUTO) 45.6 % (21.0-51.0); MEAN CORPUSCULAR HEMOGLOBIN 27.5 pg (27.0-33.0); MEAN CORPUSCULAR HGB CONC 31.4 g/dL (32.0-36.0); MEAN CORPUSCULAR VOLUME 87.6 fL (79-99); MONOCYTES % (AUTO) 21.2 % (3.0-13.0); NEUTROPHILS % (AUTO) 19.8 % (40.0-77.0); NUCLEATED RED BLOOD CELLS 2.6 % (0.0-0.19); PLATELET COUNT (AUTO) 58 K/uL (130-400); RED BLOOD CELL COUNT(AUTO) 2.98 MIL/uL (4.50-6.20); RED CELL DISTRIBUTION WIDTH 17.6 % (11.0-15.5); WHITE BLOOD COUNT (AUTO) 1.9 K/uL (4.8-10.8)
[2020-05-08 04:38] LABS: MAGNESIUM 1.9 mg/dL (1.80-2.40)
[2020-05-08] MEDS: LEVOTHYROXINE 25 MCG TABLET PO SCH (05:47)
[2020-05-08 08:00] VITALS: BP 100/66
[2020-05-08] MEDS: FUROSEMIDE 20 MG TABLET PO SCH (08:24)
[2020-05-08] MEDS: DULOXETINE HCL 30 MG CAP PO SCH (08:24)
[2020-05-08] MEDS: PANTOPRAZOLE SODIUM 40 MG TABLET.DR PO SCH (08:24)
[2020-05-08] MEDS: METOPROLOL SUCCINATE 50 MG TAB.SR.24H PO SCH (08:24)
[2020-05-08] MEDS: ASPIRIN 81 MG EC TAB PO SCH (08:24)
[2020-05-08 11:35] VITALS: BP 94/61
[2020-05-08] MEDS: FINASTERIDE 5 MG TABLET PO SCH (11:43)
--- NOTE | 2020-05-08 13:17 | NUR ---
Discussed plan of care with charge, primary nurse- DISPOSITION UNCERTAIN- PLAN OF CARE STILL IN FLUX BONE MARROW BX RESULT PENDING? POSSIBLE AVR VS NEED FOR XFER FOR TAVR PER NOTES. Addendum: 05/08/20 at 1320 by SANTINO RUGGIERO RN CM Amended: Links added.
--- NOTE | 2020-05-08 14:52 | NUR ---
DR. KT MERAZ IN TO SEE PATIENT. NO NEW ORDERS AT THIS TIME.
[2020-05-08 16:35] VITALS: BP 100/61
[2020-05-08 19:54] VITALS: BP 92/60
[2020-05-08] MEDS: ATORVASTATIN CALCIUM 20 MG TABLET PO SCH (20:15)
[2020-05-09 00:01] VITALS: BP 91/60
[2020-05-09] MEDS: ACETAMINOPHEN 325 MG TAB PO PRN ×2 (03:20→20:09)
[2020-05-09 03:57] VITALS: BP 95/56
[2020-05-09] MEDS: LEVOTHYROXINE 25 MCG TABLET PO SCH (06:04)
[2020-05-09] MEDS: METOPROLOL SUCCINATE 50 MG TAB.SR.24H PO SCH (08:03)
[2020-05-09] MEDS: DULOXETINE HCL 30 MG CAP PO SCH (08:03)
[2020-05-09] MEDS: ASPIRIN 81 MG EC TAB PO SCH (08:03)
[2020-05-09] MEDS: FUROSEMIDE 20 MG TABLET PO SCH (08:04)
[2020-05-09] MEDS: PANTOPRAZOLE SODIUM 40 MG TABLET.DR PO SCH (08:04)
[2020-05-09 08:12] VITALS: BP 90/48
[2020-05-09 11:05] VITALS: BP 109/58
[2020-05-09] MEDS: FINASTERIDE 5 MG TABLET PO SCH (12:00)
[2020-05-09] MEDS: TBO-FILGRASTIM 480 MCG/0.8 ML ML SQ SCH (12:15)
[2020-05-09 16:24] VITALS: BP 105/63
[2020-05-09 20:00] VITALS: BP 98/62
[2020-05-09] MEDS: ATORVASTATIN CALCIUM 20 MG TABLET PO SCH (20:01)
[2020-05-10] VITALS (7 sets, daily range): BP systolic 88–106; BP diastolic 59–73
[2020-05-10 03:44] LABS: HEMATOCRIT 25.3 % (42-54); MEAN CORPUSCULAR HEMOGLOBIN 27.7 pg (27.0-33.0); MEAN CORPUSCULAR VOLUME 87.5 fL (79-99); RED BLOOD CELL COUNT(AUTO) 2.89 MIL/uL (4.50-6.20); WHITE BLOOD COUNT (AUTO) 1.7 K/uL (4.8-10.8)
[2020-05-10 03:45] LABS: BASOPHILS % (AUTO) 0.6 % (0.0-5.0); EOSINOPHILS % (AUTO) 0.6 % (0.0-8.0); LYMPHOCYTES % (AUTO) 46.7 % (21.0-51.0); MEAN CORPUSCULAR HGB CONC 31.6 g/dL (32.0-36.0); NUCLEATED RED BLOOD CELLS 1.2 % (0.0-0.19); PLATELET COUNT (AUTO) 56 K/uL (130-400); RED CELL DISTRIBUTION WIDTH 17.6 % (11.0-15.5)
[2020-05-10 04:05] LABS: ALBUMIN 2.8 g/dL (3.5-5.0); BILIRUBIN,TOTAL 0.7 mg/dL (0.2-1.0); CREATININE 0.8 mg/dL (0.5-1.5); PHOSPHORUS 4.4 mg/dL (2.5-4.9); POTASSIUM 3.9 mmol/L (3.5-5.1)
[2020-05-10] MEDS: LEVOTHYROXINE 25 MCG TABLET PO SCH (05:43)
[2020-05-10] MEDS: METOPROLOL SUCCINATE 50 MG TAB.SR.24H PO SCH (09:10)
[2020-05-10] MEDS: PANTOPRAZOLE SODIUM 40 MG TABLET.DR PO SCH (09:10)
[2020-05-10] MEDS: ASPIRIN 81 MG EC TAB PO SCH (09:11)
[2020-05-10] MEDS: DULOXETINE HCL 30 MG CAP PO SCH (09:11)
[2020-05-10] MEDS: FUROSEMIDE 20 MG TABLET PO SCH (09:11)
[2020-05-10] MEDS ORDERED: TBO-FILGRASTIM 480 MCG/0.8 ML ML SQ SCH (12:15)
[2020-05-10] MEDS: TBO-FILGRASTIM 480 MCG/0.8 ML ML SQ SCH (13:46)
[2020-05-10] MEDS: FINASTERIDE 5 MG TABLET PO SCH (13:46)
[2020-05-10] MEDS: ATORVASTATIN CALCIUM 20 MG TABLET PO SCH (19:28)
[2020-05-10] MEDS: ACETAMINOPHEN 325 MG TAB PO PRN (19:44)
[2020-05-11 03:53] VITALS: BP 95/62
[2020-05-11 04:06] LABS: BASOPHILS % (AUTO) 1.6 % (0.0-5.0); EOSINOPHILS % (AUTO) 0.1 % (0.0-8.0); LYMPHOCYTES % (AUTO) 8.3 % (21.0-51.0); MEAN CORPUSCULAR HGB CONC 31.9 g/dL (32.0-36.0); MEAN CORPUSCULAR VOLUME 87.8 fL (79-99); MONOCYTES % (AUTO) 8.7 % (3.0-13.0); NEUTROPHILS % (AUTO) 72.5 % (40.0-77.0); NUCLEATED RED BLOOD CELLS 0.9 % (0.0-0.19); PLATELET COUNT (AUTO) 68 K/uL (130-400); RED BLOOD CELL COUNT(AUTO) 2.96 MIL/uL (4.50-6.20); RED CELL DISTRIBUTION WIDTH 17.7 % (11.0-15.5); WHITE BLOOD COUNT (AUTO) 10.4 K/uL (4.8-10.8)
[2020-05-11 04:21] LABS: ALBUMIN 2.9 g/dL (3.5-5.0); BILIRUBIN,TOTAL 0.8 mg/dL (0.2-1.0); POTASSIUM 3.7 mmol/L (3.5-5.1); TOTAL PROTEIN, SERUM 7.2 g/dL (6.0-8.3)
[2020-05-11] MEDS: LEVOTHYROXINE 25 MCG TABLET PO SCH (05:39)
[2020-05-11] MEDS: DULOXETINE HCL 30 MG CAP PO SCH (08:26)
[2020-05-11] MEDS: ASPIRIN 81 MG EC TAB PO SCH (08:26)
[2020-05-11] MEDS: METOPROLOL SUCCINATE 50 MG TAB.SR.24H PO SCH (08:26)
[2020-05-11] MEDS: FUROSEMIDE 20 MG TABLET PO SCH (08:26)
[2020-05-11] MEDS: PANTOPRAZOLE SODIUM 40 MG TABLET.DR PO SCH (08:26)
[2020-05-11 08:53] VITALS: BP 110/64
[2020-05-11] MEDS: TBO-FILGRASTIM 480 MCG/0.8 ML ML SQ SCH (10:49)
[2020-05-11] MEDS: FINASTERIDE 5 MG TABLET PO SCH (12:57)
[2020-05-11 13:32] VITALS: BP 109/59
[2020-05-11 16:40] VITALS: BP 102/61
[2020-05-11 20:25] VITALS: BP 104/60
[2020-05-11] MEDS: ATORVASTATIN CALCIUM 20 MG TABLET PO SCH (21:02)
[2020-05-11] MEDS: ACETAMINOPHEN 325 MG TAB PO PRN (21:06)
[2020-05-12] VITALS (7 sets, daily range): BP systolic 88–115; BP diastolic 52–77
[2020-05-12 04:50] LABS: BASOPHILS % (AUTO) 1.4 % (0.0-5.0); EOSINOPHILS % (AUTO) 0.1 % (0.0-8.0); HEMATOCRIT 24.4 % (42-54); LYMPHOCYTES % (AUTO) 13.6 % (21.0-51.0); MEAN CORPUSCULAR HEMOGLOBIN 27.9 pg (27.0-33.0); MEAN CORPUSCULAR HGB CONC 31.6 g/dL (32.0-36.0); MEAN CORPUSCULAR VOLUME 88.4 fL (79-99); MONOCYTES % (AUTO) 14.9 % (3.0-13.0); NEUTROPHILS % (AUTO) 60.6 % (40.0-77.0); PLATELET COUNT (AUTO) 67 K/uL (130-400); RED BLOOD CELL COUNT(AUTO) 2.76 MIL/uL (4.50-6.20); RED CELL DISTRIBUTION WIDTH 17.9 % (11.0-15.5); WHITE BLOOD COUNT (AUTO) 7.7 K/uL (4.8-10.8)
[2020-05-12 05:00] LABS: CREATININE 0.9 mg/dL (0.5-1.5); POTASSIUM 3.9 mmol/L (3.5-5.1)
[2020-05-12] MEDS: FUROSEMIDE 20 MG TABLET PO SCH (08:30)
[2020-05-12] MEDS: DULOXETINE HCL 30 MG CAP PO SCH (08:30)
[2020-05-12] MEDS: ASPIRIN 81 MG EC TAB PO SCH (08:30)
[2020-05-12] MEDS: PANTOPRAZOLE SODIUM 40 MG TABLET.DR PO SCH (08:31)
[2020-05-12] MEDS: METOPROLOL SUCCINATE 50 MG TAB.SR.24H PO SCH (08:31)
--- NOTE | 2020-05-12 09:00 | NUR ---
NOTE AAOX3. DNEIES PAIN OR DISCOMFORT. NO SOB OR CHEST PAIN WHEN HE GOT ADMITTED. 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 PATIENT WAS VISITED BY DR MAYANK RUBY'S P.A., THIRD LOADER. HE TOLD THE PATIENT THAT CASE MANAGEMENT HAD APPROACHED HIM TO SEND PATIENT HOME AND HAVE HIM COME BACK AN OUTPATIENT FOR VALVE REPLACEMENT SURGERY FRIDAY BUT CARDIOLOGY WILL KEEP HIM HERE OVER THE WEEKEND AND SEE IF HE REMAINS STABLE AND IF HEMATOLOGY CLEARS HIM FOR SURGERY FRIDAY.
[2020-05-12] MEDS: LEVOTHYROXINE 25 MCG TABLET PO SCH (12:35)
[2020-05-12] MEDS: FINASTERIDE 5 MG TABLET PO SCH (12:35)
--- NOTE | 2020-05-12 20:00 | NUR ---
assessment / teaching patient sitting bedside chair, no sob , no c/o pain at this time, teach patient plan of care and expected outcome, patient verbalizes understanding via teach back , patient verbalizes understanding via teach back
[2020-05-12] MEDS: ATORVASTATIN CALCIUM 20 MG TABLET PO SCH (20:14)
--- NOTE | 2020-05-12 21:10 | NUR ---
transfusion start unit prbc as ordered, temp 98.7 pulse 90 resp 18 b/p 116/71 via left wrist 22 gauge patent
--- NOTE | 2020-05-12 23:15 | NUR ---
transfusion transfusion complete, no reaction noted, see blood administration record, tolerated well, no reaction noted
[2020-05-13 04:01] VITALS: BP 108/67
[2020-05-13 05:29] LABS: BASOPHILS % (AUTO) 1.2 % (0.0-5.0); LYMPHOCYTES % (AUTO) 20.7 % (21.0-51.0); MEAN CORPUSCULAR HEMOGLOBIN 27.7 pg (27.0-33.0); MEAN CORPUSCULAR HGB CONC 31.5 g/dL (32.0-36.0); MEAN CORPUSCULAR VOLUME 87.8 fL (79-99); MONOCYTES % (AUTO) 24.9 % (3.0-13.0); NEUTROPHILS % (AUTO) 41.3 % (40.0-77.0); NUCLEATED RED BLOOD CELLS 2.3 % (0.0-0.19); PLATELET COUNT (AUTO) 76 K/uL (130-400); RED BLOOD CELL COUNT(AUTO) 2.96 MIL/uL (4.50-6.20); RED CELL DISTRIBUTION WIDTH 17.4 % (11.0-15.5); WHITE BLOOD COUNT (AUTO) 4.3 K/uL (4.8-10.8)
[2020-05-13] MEDS: LEVOTHYROXINE 25 MCG TABLET PO SCH (05:49)
[2020-05-13 08:00] VITALS: BP 108/69
[2020-05-13] MEDS: DULOXETINE HCL 30 MG CAP PO SCH (09:15)
[2020-05-13] MEDS: ASPIRIN 81 MG EC TAB PO SCH (09:15)
[2020-05-13] MEDS: METOPROLOL SUCCINATE 50 MG TAB.SR.24H PO SCH (09:15)
[2020-05-13] MEDS: FUROSEMIDE 20 MG TABLET PO SCH (09:15)
[2020-05-13] MEDS: PANTOPRAZOLE SODIUM 40 MG TABLET.DR PO SCH (09:15)
[2020-05-13 11:00] VITALS: BP 105/61
[2020-05-13] MEDS: FINASTERIDE 5 MG TABLET PO SCH (12:40)
[2020-05-13 16:00] VITALS: BP 96/64
[2020-05-13 20:00] VITALS: BP 107/66
[2020-05-13] MEDS: ATORVASTATIN CALCIUM 20 MG TABLET PO SCH (20:02)
--- NOTE | 2020-05-13 20:15 | NUR ---
assessment patient awake, alert ox3, no sob, no c/o pain at this time, encourage deep breathing exercises, teach patient plan of care and expected outcome, patient verbalizes understanding via teach back
[2020-05-13 23:35] VITALS: BP 105/69
[2020-05-14 03:56] LABS: BASOPHILS % (AUTO) 1.6 % (0.0-5.0); HEMATOCRIT 28.2 % (42-54); LYMPHOCYTES % (AUTO) 22.7 % (21.0-51.0); MEAN CORPUSCULAR HEMOGLOBIN 27.5 pg (27.0-33.0); MEAN CORPUSCULAR HGB CONC 31.6 g/dL (32.0-36.0); MONOCYTES % (AUTO) 27.6 % (3.0-13.0); NEUTROPHILS % (AUTO) 26.8 % (40.0-77.0); NUCLEATED RED BLOOD CELLS 3.8 % (0.0-0.19); PLATELET COUNT (AUTO) 76 K/uL (130-400); RED BLOOD CELL COUNT(AUTO) 3.24 MIL/uL (4.50-6.20); RED CELL DISTRIBUTION WIDTH 17.4 % (11.0-15.5); WHITE BLOOD COUNT (AUTO) 3.7 K/uL (4.8-10.8)
[2020-05-14 04:00] VITALS: BP 113/73
[2020-05-14 04:10] LABS: ALBUMIN 2.8 g/dL (3.5-5.0); BILIRUBIN,TOTAL 0.5 mg/dL (0.2-1.0); CREATININE 0.9 mg/dL (0.5-1.5); MAGNESIUM 1.6 mg/dL (1.80-2.40); PHOSPHORUS 4.2 mg/dL (2.5-4.9); POTASSIUM 3.9 mmol/L (3.5-5.1); TOTAL PROTEIN, SERUM 7.2 g/dL (6.0-8.3)
[2020-05-14] MEDS: LEVOTHYROXINE 25 MCG TABLET PO SCH (06:16)
[2020-05-14 08:00] VITALS: BP 117/71
[2020-05-14] MEDS ORDERED: TBO-FILGRASTIM 480 MCG/0.8 ML ML SQ SCH (08:30)
[2020-05-14] MEDS ORDERED: MAGNESIUM 2GM PREMIX 50ML 50 ML IV ONE (09:41)
[2020-05-14] MEDS: DULOXETINE HCL 30 MG CAP PO SCH (10:03)
[2020-05-14] MEDS: METOPROLOL SUCCINATE 50 MG TAB.SR.24H PO SCH (10:04)
[2020-05-14] MEDS: ASPIRIN 81 MG EC TAB PO SCH (10:05)
[2020-05-14] MEDS: PANTOPRAZOLE SODIUM 40 MG TABLET.DR PO SCH (10:05)
[2020-05-14] MEDS: FUROSEMIDE 20 MG TABLET PO SCH (10:06)
[2020-05-14] MEDS ORDERED: MAGNESIUM 2GM PREMIX 50ML 50 ML IV PRN (10:30)
[2020-05-14 11:00] VITALS: BP 97/64
[2020-05-14] MEDS: FINASTERIDE 5 MG TABLET PO SCH (13:23)
[2020-05-14 16:00] VITALS: BP 143/58
[2020-05-14] MEDS: ATORVASTATIN CALCIUM 20 MG TABLET PO SCH (19:27)
[2020-05-14] MEDS: ACETAMINOPHEN 325 MG TAB PO PRN (19:31)
[2020-05-14 19:54] VITALS: BP 110/62
[2020-05-14 23:55] VITALS: BP 104/64
[2020-05-15] MEDS: ACETAMINOPHEN 325 MG TAB PO PRN ×3 (02:50→19:26)
[2020-05-15 03:39] VITALS: BP 107/66
[2020-05-15 05:01] LABS: BASOPHILS % (AUTO) 2.3 % (0.0-5.0); HEMATOCRIT 27.8 % (42-54); LYMPHOCYTES % (AUTO) 5.8 % (21.0-51.0); MEAN CORPUSCULAR HEMOGLOBIN 27.8 pg (27.0-33.0); MEAN CORPUSCULAR VOLUME 86.9 fL (79-99); MONOCYTES % (AUTO) 10.7 % (3.0-13.0); NEUTROPHILS % (AUTO) 65.4 % (40.0-77.0); NUCLEATED RED BLOOD CELLS 1.6 % (0.0-0.19); PLATELET COUNT (AUTO) 70 K/uL (130-400); RED CELL DISTRIBUTION WIDTH 17.5 % (11.0-15.5); WHITE BLOOD COUNT (AUTO) 21.2 K/uL (4.8-10.8)
[2020-05-15 05:14] LABS: ALBUMIN 2.8 g/dL (3.5-5.0); BILIRUBIN,TOTAL 0.7 mg/dL (0.2-1.0); MAGNESIUM 1.6 mg/dL (1.80-2.40); PHOSPHORUS 3.9 mg/dL (2.5-4.9); POTASSIUM 3.6 mmol/L (3.5-5.1); TOTAL PROTEIN, SERUM 7.1 g/dL (6.0-8.3)
[2020-05-15 05:26] LABS: INR 1.01 (0.85-1.15); PARTIAL THROMBOPLASTIN TIME 29.6 SEC (26.3-35.5); PROTHROMBIN TIME 10.9 SEC (9.6-11.6)
[2020-05-15] MEDS: LEVOTHYROXINE 25 MCG TABLET PO SCH (05:56)
[2020-05-15] MEDS: POTASSIUM CHLORIDE 20 MEQ ERTAB PO PRN (05:57)
[2020-05-15 08:28] VITALS: BP 102/66
--- NOTE | 2020-05-15 08:59 | NUR ---
CHART REVIEWED, ANTICIPATE DR. THOMPSON'S RECOMMENDATIONS. POSSIBLE INITIATION OF TRANSFER TO [facility] THIS WEEK FOR TAVR. DISCUSSED W SHARRON, WILL FOLLOW WITH BEAN DUMPER AND PRIMARY RN Addendum: 05/15/20 at 0903 by SANTINO RUGGIERO RN CM Amended: Links added.
[2020-05-15] MEDS: DULOXETINE HCL 30 MG CAP PO SCH (09:20)
[2020-05-15] MEDS: ASPIRIN 81 MG EC TAB PO SCH (09:20)
[2020-05-15] MEDS: FUROSEMIDE 20 MG TABLET PO SCH (09:20)
[2020-05-15] MEDS: PANTOPRAZOLE SODIUM 40 MG TABLET.DR PO SCH (09:20)
[2020-05-15] MEDS: METOPROLOL SUCCINATE 50 MG TAB.SR.24H PO SCH (09:21)
[2020-05-15 11:31] VITALS: BP 98/66
[2020-05-15] MEDS: FINASTERIDE 5 MG TABLET PO SCH (12:47)
[2020-05-15 16:56] VITALS: BP 101/63
[2020-05-15] MEDS: ATORVASTATIN CALCIUM 20 MG TABLET PO SCH (19:23)
[2020-05-15 19:50] VITALS: BP 103/59
[2020-05-15] MEDS ORDERED: TEMAZEPAM 15 MG CAPSULE PO PRN (20:15)
[2020-05-15 23:48] VITALS: BP 97/60
[2020-05-16 04:00] VITALS: BP 106/69
[2020-05-16 04:27] LABS: BASOPHILS % (AUTO) 2.8 % (0.0-5.0); HEMATOCRIT 28.6 % (42-54); LYMPHOCYTES % (AUTO) 7.5 % (21.0-51.0); MEAN CORPUSCULAR HGB CONC 31.8 g/dL (32.0-36.0); MONOCYTES % (AUTO) 11.8 % (3.0-13.0); NEUTROPHILS % (AUTO) 45.7 % (40.0-77.0); NUCLEATED RED BLOOD CELLS 3.1 % (0.0-0.19); PLATELET COUNT (AUTO) 81 K/uL (130-400); RED BLOOD CELL COUNT(AUTO) 3.25 MIL/uL (4.50-6.20); RED CELL DISTRIBUTION WIDTH 17.7 % (11.0-15.5); WHITE BLOOD COUNT (AUTO) 19.3 K/uL (4.8-10.8)
[2020-05-16 04:36] LABS: ALBUMIN 2.8 g/dL (3.5-5.0); BILIRUBIN,TOTAL 0.7 mg/dL (0.2-1.0); CREATININE 0.8 mg/dL (0.5-1.5); PHOSPHORUS 4.6 mg/dL (2.5-4.9); POTASSIUM 3.6 mmol/L (3.5-5.1); TOTAL PROTEIN, SERUM 7.3 g/dL (6.0-8.3)
[2020-05-16] MEDS: LEVOTHYROXINE 25 MCG TABLET PO SCH (05:12)
[2020-05-16 08:43] VITALS: BP 97/68
[2020-05-16] MEDS: FUROSEMIDE 20 MG TABLET PO SCH (09:30)
[2020-05-16] MEDS: PANTOPRAZOLE SODIUM 40 MG TABLET.DR PO SCH (09:30)
[2020-05-16] MEDS: DULOXETINE HCL 30 MG CAP PO SCH (09:30)
[2020-05-16] MEDS: ASPIRIN 81 MG EC TAB PO SCH (09:30)
[2020-05-16] MEDS: METOPROLOL SUCCINATE 50 MG TAB.SR.24H PO SCH (09:31)
[2020-05-16] MEDS: ACETAMINOPHEN 325 MG TAB PO PRN ×2 (10:01→20:37)
--- NOTE | 2020-05-16 10:44 | NUR ---
PER DR THOMPSON RECOMMENDATION PATIENT IS CLEAR FOR SURGERY, NOTIFIED DR BONILLA STATES PLAN WAS FOR SURGERY TODAY, WAS UNABLE TO GET APPROVAL PLAN IS FOR SURGERY TOMORROW 05/17
[2020-05-16 11:40] VITALS: BP 102/64
[2020-05-16] MEDS: FINASTERIDE 5 MG TABLET PO SCH (13:01)
[2020-05-16] MEDS ORDERED: FUROSEMIDE 20 MG TABLET PO SCH (15:30)
[2020-05-16 16:41] VITALS: BP 96/64
[2020-05-16 20:20] VITALS: BP 103/64
[2020-05-16] MEDS: ATORVASTATIN CALCIUM 20 MG TABLET PO SCH (20:36)
--- NOTE | 2020-05-16 23:36 | NUR ---
VERIFIED WITH VERIFICATION REP ALBINA THAT THE ORDERS WHERE IN PLACE CORRECTLY AND LAB WAS ABLE TO SEE THEM ORDERED 4 UNITS OF PRBC 4 UNITS OF FFP 4 UNITIS OF PHERESIS PLASMA PER ALBINA FROZEN PLASMA IS AVAILABLE AT THE MOMENT IT WILL BE USED, SINCE IT NEEDS TO BE THAW AND WE ONLY HAVE 3 UNITS OF PLASMA IN STOCK BUT A NEW SHIPMENT WILL COME THROUGH IN THE MORNING
[2020-05-17] VITALS (10 sets, daily range): BP systolic 42–108; BP diastolic 32–72
[2020-05-17] MEDS: LEVOTHYROXINE 25 MCG TABLET PO SCH (00:46)
[2020-05-17 05:49] LABS: BASOPHILS % (AUTO) 1.2 % (0.0-5.0); EOSINOPHILS % (AUTO) 0.1 % (0.0-8.0); HEMATOCRIT 28.1 % (42-54); LYMPHOCYTES % (AUTO) 7.9 % (21.0-51.0); MEAN CORPUSCULAR HEMOGLOBIN 27.8 pg (27.0-33.0); MEAN CORPUSCULAR HGB CONC 31.7 g/dL (32.0-36.0); MEAN CORPUSCULAR VOLUME 87.8 fL (79-99); MONOCYTES % (AUTO) 15.2 % (3.0-13.0); NEUTROPHILS % (AUTO) 32.7 % (40.0-77.0); NUCLEATED RED BLOOD CELLS 3.5 % (0.0-0.19); PLATELET COUNT (AUTO) 70 K/uL (130-400); RED CELL DISTRIBUTION WIDTH 17.9 % (11.0-15.5); WHITE BLOOD COUNT (AUTO) 16.3 K/uL (4.8-10.8)
--- NOTE | 2020-05-17 06:00 | NUR ---
ANTICHECKING IRON WORKER NURSES HERE TO PICK PATIENT UP AWARE THAT EKG ORDERED FOR 6 AM WAS ABOUT TO BE DONE BUT NURSES STATED THEY WILL TAKE PATIENT LIKE THAT AND DO THE EKG DOWN STAIRS AWARE OF PT'S MEDICATION METOPORLOL DUE AT 9 AM WAS NOT BEEN GIVEN, STATED THEY WILL GIVE IT DOWN STAIRS AWARE OF BLOOD PRODUCTS ON HOLD AND THAT PT'S BELONGINGS ARE WITH SECURITY PT IN GOOD SPIRITS, DENIES SOB , DENIES CHEST PAIN CONSENT IN THE CHART
[2020-05-17 06:07] LABS: INR 1.01 (0.85-1.15); PARTIAL THROMBOPLASTIN TIME 28.4 SEC (26.3-35.5); PROTHROMBIN TIME 10.9 SEC (9.6-11.6)
[2020-05-17 06:15] LABS: ALBUMIN 2.9 g/dL (3.5-5.0); BILIRUBIN,TOTAL 0.6 mg/dL (0.2-1.0); CREATININE 0.8 mg/dL (0.5-1.5); POTASSIUM 3.6 mmol/L (3.5-5.1); TOTAL PROTEIN, SERUM 7.2 g/dL (6.0-8.3)
[2020-05-17] MEDS ORDERED: CEFAZOLIN SODIUM 1 GM VIAL ONE ×4 (06:20→12:53)
[2020-05-17] MEDS ORDERED: NOREPINEPHRINE BITARTRATE 8 MG in DEXTROSE 5%-WATER 250 ML IV PRN (06:45)
[2020-05-17] MEDS ORDERED: EPINEPHRINE 10 MG in SODIUM CHLORIDE 0.9% 240 ML IV PRN (06:45)
[2020-05-17] MEDS ORDERED: AMINOCAPROIC ACID 15,000 MG in SODIUM CHLORIDE 0.9% 500ML 420 ML IV PRN (06:45)
[2020-05-17] MEDS ORDERED: PAPAVERINE HCL 30 MG/ML 2ML VIAL ONE (07:22)
[2020-05-17] MEDS ORDERED: CEFAZOLIN SODIUM 1 GM VIAL IVP PRN (07:30)
[2020-05-17] MEDS ORDERED: FENTANYL CITRATE PF 50 MCG/1 ML 20ML VIAL IJ ONE (07:48)
[2020-05-17] MEDS ORDERED: PROTAMINE SULFATE 10 MG/ML 25ML VIAL IV ONE (07:48)
[2020-05-17] MEDS ORDERED: AMINOCAPROIC ACID 250 MG/ML 20 ML VIAL IV ONE (07:48)
[2020-05-17] MEDS ORDERED: HEPARIN SODIUM 1000UNIT/ML 10ML VIAL ONE (07:48)
[2020-05-17] MEDS ORDERED: SODIUM BICARB 50MEQ 50ML VIAL ONE ×5 (07:48→16:59)
[2020-05-17] MEDS ORDERED: LIDOCAINE PF 2% 5ML ABBOJECT ONE (07:48)
[2020-05-17] MEDS ORDERED: EPINEPHRINE 1 MG/ML AMPULE ONE (07:48)
[2020-05-17] MEDS ORDERED: ESMOLOL HCL 10 MG/ML 10 ML VIAL ONE (07:48)
[2020-05-17] MEDS ORDERED: PROPOFOL 10 MG/ML 20ML VIAL IV ONE (07:48)
[2020-05-17] MEDS ORDERED: NOREPINEPHRINE BITARTRATE 1 MG/1 ML ML IV ONE ×3 (07:48→12:16)
[2020-05-17] MEDS ORDERED: ROCURONIUM 10MG/1ML SYR 10 MG/ML ML ONE (07:49)
[2020-05-17] MEDS ORDERED: MIDAZOLAM HCL 1 MG/ML 2ML VIAL ONE ×2 (07:49→14:34)
[2020-05-17] MEDS ORDERED: KETAMINE 50MG/ML SYRINGE 50 MG/ML DISP.SYRIN IV ONE (07:50)
[2020-05-17 08:59] LABS: ABG BASE EXCESS 2.1 mmol/L (-2.0-3.0); ABG HCO3 26.3 mmol/L (21.0-28.0); ABG OXYGEN SATURATION 99.3 % (95.0-99.0); ABG PCO2 39 mmHg (35-48)
[2020-05-17] MEDS: DULOXETINE HCL 30 MG CAP PO SCH (09:00)
[2020-05-17] MEDS: ASPIRIN 81 MG EC TAB PO SCH (09:00)
[2020-05-17] MEDS ORDERED: DELNIDO FORMULA 1 BAG IV ONE ×2 (09:14→11:31)
[2020-05-17] MEDS ORDERED: DELNIDO FORMULA 2 BAG IV ONE (09:35)
[2020-05-17] MEDS ORDERED: NOREPINEPHRINE 4MG/NS 250ML 250 ML IV PRN (10:15)
[2020-05-17] MEDS ORDERED: SODIUM CHLORIDE 0.9% 1000ML 1,000 ML IV SCH (10:15)
[2020-05-17] MEDS ORDERED: MORPHINE SULFATE 4 MG/1ML SYG IV PRN (10:15)
[2020-05-17] MEDS ORDERED: NITROGLYCERIN 50 MG/D5% WATER 250 BOT IV SCH (10:15)
[2020-05-17] MEDS ORDERED: MAGNESIUM 2GM PREMIX 50ML 50 ML IV PRN (10:15)
[2020-05-17] MEDS ORDERED: POTASSIUM PHOS 15 mMOL+NS250ML 250 ML IV PRN (10:15)
[2020-05-17] MEDS ORDERED: POTASSIUM CHLORIDE 20MEQ/100ML 100 ML IV PRN (10:15)
[2020-05-17] MEDS ORDERED: SODIUM CHLORIDE 0.9% 500ML 500 ML IV SCH (10:15)
[2020-05-17] MEDS ORDERED: SODIUM CHLORIDE 0.9% 250 ML IV PRN (10:15)
[2020-05-17] MEDS ORDERED: ONDANSETRON HCL 4 MG/2 ML VIAL IV PRN (10:15)
[2020-05-17] MEDS ORDERED: SODIUM CHLORIDE 0.9% 10 ML VIAL IVP PRN (10:15)
[2020-05-17] MEDS ORDERED: INSULIN REGULAR, HUMAN 3ML 100 UNIT in SODIUM CHLORIDE 0.9% 99 ML IV SCH ×2 (10:15)
[2020-05-17] MEDS ORDERED: SODIUM BICARB 50MEQ 50ML VIAL IV PRN (10:15)
[2020-05-17] MEDS ORDERED: ALBUMIN (HUMAN) 5% 250 ML IV PRN (10:15)
[2020-05-17] MEDS ORDERED: AMINOCAPROIC ACID 15,000 MG in SODIUM CHLORIDE 0.9% 250 ML IV SCH (10:15)
[2020-05-17] MEDS ORDERED: MORPHINE SULFATE 2 MG/ML 1ML SYG IV PRN (10:15)
[2020-05-17] MEDS ORDERED: DEXTROSE 50%-WATER 50 ML DISP.SYRIN IV PRN (10:15)
[2020-05-17] MEDS ORDERED: GLUCAGON 1MG KIT 1 MG ML IM PRN (10:15)
[2020-05-17] MEDS ORDERED: PROPOFOL 1000 MG/100 ML 100 ML IV PRN (10:15)
[2020-05-17] MEDS ORDERED: EPINEPHRINE 2 MG in DEXTROSE 5%-WATER 250 ML IV PRN (10:15)
[2020-05-17] MEDS ORDERED: ACETAMINOPHEN 650 MG SUPPOSITORY RC PRN (10:15)
[2020-05-17] MEDS ORDERED: ACETAMINOPHEN 325 MG TAB PO PRN ×2 (10:15)
[2020-05-17] MEDS ORDERED: TRAMADOL HCL 50 MG TABLET PO PRN ×2 (10:15)
[2020-05-17 10:57] LABS: ABG BASE EXCESS -5.4 mmol/L (-2.0-3.0); ABG HCO3 19.6 mmol/L (21.0-28.0); ABG OXYGEN SATURATION 98.9 % (95.0-99.0); ABG PCO2 36 mmHg (35-48)
[2020-05-17] MEDS ORDERED: VASOPRESSIN 20 UNITS/ML 1ML VIAL ONE ×2 (11:10→15:42)
[2020-05-17 11:42] LABS: ABG BASE EXCESS 1.8 mmol/L (-2.0-3.0); ABG HCO3 25.2 mmol/L (21.0-28.0); ABG OXYGEN SATURATION 98.5 % (95.0-99.0); ABG PCO2 32 mmHg (35-48)
[2020-05-17] MEDS: FINASTERIDE 5 MG TABLET PO SCH (12:00)
[2020-05-17 12:13] LABS: ABG BASE EXCESS -12.2 mmol/L (-2.0-3.0); ABG HCO3 13.4 mmol/L (21.0-28.0); ABG OXYGEN SATURATION 98.2 % (95.0-99.0); ABG PCO2 30 mmHg (35-48)
[2020-05-17] MEDS ORDERED: PHARMACY COMMUNICATION MISC SCH (12:30)
[2020-05-17 12:52] LABS: ABG BASE EXCESS -2.4 mmol/L (-2.0-3.0); ABG HCO3 22.7 mmol/L (21.0-28.0); ABG OXYGEN SATURATION 96.9 % (95.0-99.0); ABG PCO2 40 mmHg (35-48)
[2020-05-17 13:35] LABS: ABG BASE EXCESS 6.8 mmol/L (-2.0-3.0); ABG HCO3 30.9 mmol/L (21.0-28.0); ABG OXYGEN SATURATION 98.2 % (95.0-99.0); ABG PCO2 42 mmHg (35-48)
[2020-05-17 14:00] LABS: ABG BASE EXCESS -10.6 mmol/L (-2.0-3.0); ABG HCO3 15.8 mmol/L (21.0-28.0); ABG OXYGEN SATURATION 98.6 % (95.0-99.0); ABG PCO2 37 mmHg (35-48)
[2020-05-17] MEDS ORDERED: SODIUM BICARB 8.4% 50ML SYRINGE ONE (14:12)
[2020-05-17] MEDS ORDERED: EPHEDRINE SULFATE 50 MG/ML AMPULE ONE (14:28)
[2020-05-17 14:36] LABS: ABG BASE EXCESS 0.7 mmol/L (-2.0-3.0); ABG HCO3 25.7 mmol/L (21.0-28.0); ABG OXYGEN SATURATION 97.7 % (95.0-99.0); ABG PCO2 43 mmHg (35-48)
[2020-05-17] MEDS ORDERED: METHYLPREDNISOLONE SOD SUCC 125MG/2ML VIAL ONE (14:53)
--- NOTE | 2020-05-17 15:05 | NUR ---
RECEIVED PT FROM OR SP CABG /AVR. PT ACCOMPANIED BY OR NURSES, PT ASBP 50S. PT RECEIVING PRBC ORDERED. PT ON LEVOPHED AT 12 MCGS/MIN AND EPINEPHRINE AT 0.15 MCGS/KG/MIN. DR. SANDS CALLED AND UPDATED IN PT CONDITION HEMODYNAMICS/LAB/ABG/DRIPS. BICARB AND CALCIUM GIVEN ORDERED. IMPELLA TO LEFT GROIN SET AT P9, 3.2 L/MIN FLOW. PT BP CONTINUES 50-70S, VASOPRESSIN STARTED ORDERED. PT ON VASOPRESSIN AT 0.04 UNITS/MIN. EPI AT 0.2 MCG/KG/MIN AND LEVO AT 20 MCGS/MIN.
[2020-05-17] MEDS ORDERED: CEFAZOLIN SODIUM 1 GM VIAL IV SCH (15:15)
[2020-05-17 15:18] LABS: ABG BASE EXCESS -11.7 mmol/L (-2.0-3.0); ABG HCO3 17.9 mmol/L (21.0-28.0); ABG OXYGEN SATURATION 85.5 % (95.0-99.0); ABG PCO2 58 mmHg (35-48)
[2020-05-17] MEDS ORDERED: ALBUMIN (HUMAN) 5% 250 ML IV ONE ×3 (15:40→17:25)
[2020-05-17 15:45] LABS: MEAN CORPUSCULAR HEMOGLOBIN 29.1 pg (27.0-33.0); MEAN CORPUSCULAR HGB CONC 33.6 g/dL (32.0-36.0); MEAN CORPUSCULAR VOLUME 86.5 fL (79-99); NUCLEATED RED BLOOD CELLS 5.4 % (0.0-0.19); PLATELET COUNT (AUTO) 55 K/uL (130-400); RED BLOOD CELL COUNT(AUTO) 2.89 MIL/uL (4.50-6.20); RED CELL DISTRIBUTION WIDTH 14.9 % (11.0-15.5)
[2020-05-17] MEDS: CALCIUM GLUCONATE 1 GM in SODIUM CHLORIDE 0.9% 50 ML IV PRN ×2 (15:49→15:52)
[2020-05-17 15:54] LABS: WHITE BLOOD COUNT (AUTO) 46.5 K/uL (4.8-10.8)
[2020-05-17 16:01] LABS: CREATININE 1.4 mg/dL (0.5-1.5); INR 1.65 (0.85-1.15); MAGNESIUM 3.2 mg/dL (1.80-2.40); PARTIAL THROMBOPLASTIN TIME 60.4 SEC (26.3-35.5); PHOSPHORUS 7.7 mg/dL (2.5-4.9); POTASSIUM 3.9 mmol/L (3.5-5.1); PROTHROMBIN TIME 17.5 SEC (9.6-11.6)
[2020-05-17 16:04] LABS: ABG BASE EXCESS -1.9 mmol/L (-2.0-3.0); ABG HCO3 24.6 mmol/L (21.0-28.0); ABG OXYGEN SATURATION 84.9 % (95.0-99.0); ABG PCO2 51 mmHg (35-48)
[2020-05-17] MEDS ORDERED: WATER SQ SCH (16:15)
[2020-05-17] MEDS ORDERED: DEXTROSE 5% SQ SCH (16:15)
[2020-05-17] MEDS ORDERED: HEPARIN SODIUM SQ SCH (16:15)
[2020-05-17 16:25] LABS: BAND NEUTROPHILS % (MANUAL) 48 % (0-2); LYMPHOCYTES % (MANUAL) 4 % (22-44); MAN.DIFF COMMENT-IMPRESSION MANUAL DIFFERENTIAL; MONOCYTES % (MANUAL) 1 % (2-9); REACTIVE LYMPHOCYTES 2 % (0-0); SEGMENTED NEUTROPHILS % 45 % (40-70)
[2020-05-17 16:26] LABS: PLATELET MORPHOLOGY COMMENT MARKED DECREASE
[2020-05-17 16:50] LABS: ABG BASE EXCESS -3.3 mmol/L (-2.0-3.0); ABG PCO2 41 mmHg (35-48)
--- NOTE | 2020-05-17 17:00 | NUR ---
PT HAS LARGE AMT OF CHEST TUBE OUT PUTS-BLOODY OUTPUT. HYPOTENSIVE. REQUIRING BLOOD PRODUCTS AND VASOPRESSORS. VENOUS PACING INITIATED WITH A HR -100 AND STIM OF 10 WITH CAPTURE. FIO2 100%.REQUIRING SODIUM BICARB PER MD ORDERS. PLEASE REFER TO EMAR FOR MEDS GIVEN. PT ON VASOPRESSIN /EPI/LEVOPHED DRIPS. DR SANDS HAS BEEN UPDATED FREQUENTLY ON PT STATUS. PLEASE REFER TO BLOOD TRANSFUSION RECORDS FOR BLOOD PRODUCTS GIVEN. PT BEGINNING TO OOZE BLOOD FROM CHEST INCISION. URINE IS PINK TINGED. IMPELLA AT P9 SETTING.
[2020-05-17] MEDS ORDERED: VASOPRESSIN 20 UNITS in SODIUM CHLORIDE 0.9% 100 ML IV SCH (17:15)
--- NOTE | 2020-05-17 17:33 | NUR ---
PT PULSELESS. CODE BLUE INITIATED
[2020-05-17] MEDS ORDERED: AMIODARONE HCL 50 MG/ML 3 ML VIAL ONE (17:47)
[2020-05-17 18:09] LABS: ABG BASE EXCESS 40.2 mmol/L (-2.0-3.0); ABG HCO3 68.3 mmol/L (21.0-28.0); ABG OXYGEN SATURATION 69.9 % (95.0-99.0); ABG PCO2 106 mmHg (35-48)
--- NOTE | 2020-05-17 19:30 | NUR ---
SPOKE WITH PT DAUGHTER JAKI SUTHERLAND [phone]. SHE WAS NOT ABLE TO GIVE HOME ARRANGEMENTS YET, ALSO WAS NOT SURE ABOUT AUTOPSY. SHE WAS GIVEN DIRECTOR CARD PHONE NUMBER TO CALL WHEN THEY WERE READY. POST MORTEM CARE DONE AND PT SENT TO [facility]. DIRECTOR CARD MADE AWARE.
[2020-05-17] MEDS ORDERED: FAMOTIDINE/PF 20 MG/2 ML VIAL IV SCH (21:00)
== END 2020-05-17 18:21 | disposition expired | DRG 215 ==
LOC: EDH 17:12 → EDHIP 17:56 → 2BH 20:56 → 2AH 04-28 13:12 → DAHIP 05-01 23:11 → 3AH 05-02 23:18 → PAH.CVR 05-17 12:00
PROVIDERS: ADMIT Internal Medicine; ATTEND Internal Medicine
PROC: 07DR3ZX Extraction of Iliac Bone Marrow, Percutaneous Approach, Diagnostic (ICD-10-PCS; 2020-05-03)
PROC: 4A023N8 Measurement of Cardiac Sampling and Pressure, Bilateral, Percutaneous Approach (ICD-10-PCS; 2020-05-04)
PROC: B2111ZZ Fluoroscopy of Multiple Coronary Arteries using Low Osmolar Contrast (ICD-10-PCS; 2020-05-04)
PROC: B2131ZZ Fluoroscopy of Multiple Coronary Artery Bypass Grafts using Low Osmolar Contrast (ICD-10-PCS; 2020-05-04)
PROC: 30233N1 Transfusion of Nonautologous Red Blood Cells into Peripheral Vein, Percutaneous Approach (ICD-10-PCS; 2020-05-12)
PROC: 02RF08Z Replacement of Aortic Valve with Zooplastic Tissue, Open Approach (ICD-10-PCS; 2020-05-17)
PROC: 30233K1 Transfusion of Nonautologous Frozen Plasma into Peripheral Vein, Percutaneous Approach (ICD-10-PCS; 2020-05-17)
PROC: 30233R1 Transfusion of Nonautologous Platelets into Peripheral Vein, Percutaneous Approach (ICD-10-PCS; 2020-05-17)
PROC: 5A12012 Performance of Cardiac Output, Single, Manual (ICD-10-PCS; 2020-05-17)
PROC: 5A1221Z Performance of Cardiac Output, Continuous (ICD-10-PCS; 2020-05-17)
PROC: 021009W Bypass Coronary Artery, One Artery from Aorta with Autologous Venous Tissue, Open Approach (ICD-10-PCS; principal; 2020-05-17 08:13)
PROC: 02HA0RZ Insertion of Short-term External Heart Assist System into Heart, Open Approach (ICD-10-PCS; 2020-05-17 08:13)
PROC: 06BP4ZZ Excision of Right Saphenous Vein, Percutaneous Endoscopic Approach (ICD-10-PCS; 2020-05-17 08:13)
PROC: 5A0221D Assistance with Cardiac Output using Impeller Pump, Continuous (ICD-10-PCS; 2020-05-17 08:13)
DX: T82.868A Thrombosis due to vascular prosthetic devices, implants and grafts, initial encounter (principal); I21.4 Non-ST elevation (NSTEMI) myocardial infarction; I50.43 Acute on chronic combined systolic (congestive) and diastolic (congestive) heart failure; I25.810 Atherosclerosis of coronary artery bypass graft(s) without angina pectoris; D61.818 Other pancytopenia; T82.855A Stenosis of coronary artery stent, initial encounter; Z95.5 Presence of coronary angioplasty implant and graft; I25.10 Atherosclerotic heart disease of native coronary artery without angina pectoris; I35.0 Nonrheumatic aortic (valve) stenosis; D63.8 Anemia in other chronic diseases classified elsewhere; I71.4 Abdominal aortic aneurysm, without rupture; D46.9 Myelodysplastic syndrome, unspecified; E03.9 Hypothyroidism, unspecified; I46.9 Cardiac arrest, cause unspecified; E11.51 Type 2 diabetes mellitus with diabetic peripheral angiopathy without gangrene; E78.00 Pure hypercholesterolemia, unspecified; E78.5 Hyperlipidemia, unspecified; G89.29 Other chronic pain; I11.0 Hypertensive heart disease with heart failure; I25.5 Ischemic cardiomyopathy; I65.29 Occlusion and stenosis of unspecified carotid artery; Z20.828 Contact with and (suspected) exposure to other viral communicable diseases; F32.9 Major depressive disorder, single episode, unspecified; M54.5 Low back pain; Y83.1 Surgical operation with implant of artificial internal device as the cause of abnormal reaction of the patient, or of later complication, without mention of misadventure at the time of the procedure; Z79.899 Other long term (current) drug therapy; Z90.49 Acquired absence of other specified parts of digestive tract; Y83.2 Surgical operation with anastomosis, bypass or graft as the cause of abnormal reaction of the patient, or of later complication, without mention of misadventure at the time of the procedure; Y92.9 Unspecified place or not applicable
CPT/HCPCS: 36415; 36430; 36600; 38222; 71045; 71275; 76000; 77012; 80048; 80053; 80076; 81003; 82270; 82435; 82550; 82728; 82803; 82947; 82948; 83605; 83615; 83690; 83735; 83874; 83880; 84100; 84132; 84145; 84295; 84484; 85014; 85018; 85025; 85027; 85347; 85378; 85384; 85610; 85730; 86140; 86850; 86900; 86901; 86922; 86923; 86927; 87426; 88184; 88185; 88305; 88311; 88313; 88341; 88342; 88360; 92950; 93005; 93306; 93308; 93313; 93318; 93356; 93461; 93880; 94002; 94010; 99156; 99157; 99291; A7048; C1769; C1894; G0378; J0153; J0171; J0282; J0610; J0690; J1100; J1644; J1815; J1940; J2001; J2150; J2250; J2370; J2405; J2440; J2704; J2720; J2930; J3010; J3475; J3490; J7030; J7040; J7050; J7060; P9012; P9016; P9017; P9034; P9045; P9047; Q9967; U0003